=== PATIENT | female | born 1980 | race Caucasian/White ===

== ENCOUNTER 2018-03-18 18:56 | Inpatient (IN) ==
[2018-03-18] MEDS ORDERED: *HR* HYDROcodone/Acet 5/325 mg TABLET PO ONE (19:50)
[2018-03-18] MEDS ORDERED: Lidocaine 1% 20 ML MDV INFILT ONE (19:59)
--- NOTE | 2018-03-18 19:59 | Emergency Department Note ---
Disposition Clinical Impression: Accelerated hypertension Headache Qualifiers: Headache type: unspecified Headache chronicity pattern: acute headache Intractability: intractable Qualified Code(s): R51 - Headache Disposition: Admitted As Inpatient Condition: Good Time of Disposition: 00:10 Neck Injury/Pain HPI - General Chief Complaint: ED Neck Pain/Injury Stated Complaint: neck pain-being tx for herniated discs Time Seen by Provider: 03/18/18 19:37 Source: patient, family () Mode of arrival: ambulatory Limitations: no limitations Nursing Notes Reviewed: Yes Vital Signs Reviewed: Yes - History of Present Illness HPI Narrative: 37-year-old female history of C5 herniated disc presents emergency department with neck pain and headache. States an hour prior to arrival while leaving the restaurant she began experiencing sharp neck pain just below the back of her head. No radiation of the pain initially. She denies any numbness or tingling. Denies any weakness of her extremities. She denies any injury or trauma to the head or the neck. She was recently diagnosed with a herniated discs 3 months ago on imaging, she follows with Dr. Santo davis in [place], [place] with [facility]. Currently the pain is sharp and radiates up along the back of her head to the top of her head. She denies any nausea or vomiting. Denies any visual changes. States she said some similar neck pain but not this severe , she normally takes [place] which helps control the pain. She reports being evaluated by multiple physicians and multiple pain modalities including different medications, nerve blocks and also an ablation. Pt Subjective Complaint: neck pain - Related Data Home Medications Medication Instructions Recorded Confirmed Amitriptyline [Elavil] 50 mg PO HS 04/18/15 04/18/15 Amlodipine [Norvasc] 10 mg PO DAILY 04/18/15 04/18/15 Atorvastatin [Lipitor] 40 mg PO HS 04/18/15 04/18/15 Cetirizine HCl [Zyrtec] 10 mg PO DAILY 04/18/15 04/18/15 FLUoxetine HCl [PROzac] 20 mg PO BID 04/18/15 04/18/15 Fenofibrate [Lofibra] 160 mg PO HS 04/18/15 04/18/15 Gabapentin [Neurontin] 600 mg PO TID 04/18/15 04/18/15 Lisinopril [Zestril] 10 mg PO DAILY 04/18/15 04/18/15 Metformin HCl [Fortamet] 500 mg PO BID 04/18/15 04/18/15 Tizanidine [Zanaflex] 4 mg PO QID PRN 04/18/15 04/18/15 Previous Rx's Medication Instructions Recorded HYDROcodone/Acet 5/325 mg [[place] 1 tab PO Q4H PRN #15 tab 10/13/16 5-325 mg] Ondansetron HCl [Zofran] 4 mg PO Q8HR PRN #10 tablet 03/22/17 OxyCODONE/APAP 5/325 [Percocet 1 each PO Q6HR PRN #14 tablet 03/22/17 5/325 MG] predniSONE [Prednisone] 50 mg PO DAILY #5 tablet 06/18/17 Allergies Allergy/AdvReac Type Severity Reaction Status Date / Time aspirin [ASA] AdvReac See Verified 03/18/18 19:08 Comments Tape Allergy Hives Uncoded 03/18/18 19:08 All systems ED: reviewed and negative except as stated. Review of Systems: As Per HPI Constitutional: Denies: fever ENT ED: Denies: congestion Cardiovascular: Denies: chest pain Respiratory: Denies: dyspnea Gastrointestinal: Denies: nausea, vomiting Musculoskeletal: Reports: neck pain. Denies: back pain Integumentary: Denies: rash, abrasion Neurological: Reports: headache. Denies: weakness, numbness, paresthesias, abnormal gait Past Medical History - Past Medical History Attestation: Yes The following information was validated with the patient. Source: patient Medical history: Reports: diabetes, fibromyalgia, hyperlipidemia, hypertension Surgical history: Reports: non-contributory Psychiatric history: Reports: no psych history - Social History Smoking Status: Never smoker Smokeless Tobacco Status: No Alcohol use: Reports: none Drug use: Reports: none Physical Exam - General Limitations: no limitations General appearance: alert, in no apparent distress - Head Head exam: atraumatic, normocephalic, normal inspection - Eye Eye exam: Present: normal appearance, PERRL, EOMI, mydriasis. Absent: nystagmus - ENT ENT exam: normal exam, normal oropharynx, mucous membranes moist, TM's normal bilaterally - Neck Neck exam: Present: normal inspection, full ROM, trachea midline, tenderness ( Upper cervical midline tenderness and paraspinal around C2 C3) - Chest Chest inspection: Present: normal inspection, symmetric chest wall rise. Absent : tenderness - Respiratory Respiratory exam: Present: normal lung sounds bilaterally - Cardiovascular Cardiovascular exam: Present: regular rate, normal rhythm, normal heart sounds. Absent: systolic murmur, diastolic murmur - Expanded Cardiovascular Exam Peripheral pulses: 2+: radial (R), radial (L) - Abdominal Exam Abdominal exam: Present: soft, Non-Tender. Absent: tenderness, distention, guarding, rebound, rigidity - Extremities Exam Extremities exam: Present: normal inspection, full ROM, normal capillary refill. Absent: tenderness, pedal edema - Back Exam Back exam: Present: normal inspection, full ROM. Absent: tenderness, vertebral tenderness - Neurological Exam Neurological exam: Present: alert, oriented X3, CN II-XII intact - Expanded Neurological Exam Patient oriented to: Present: person, place, time Speech: Present: fluid speech Cranial nerves: EOM function (II, III, IV, ): Normal, facial sensation (V): Normal, facial palsy (VII): Normal, gag reflex (IX): Normal, spinal accessory function (XI): Normal, tongue deviation (XII): Normal Cerebellar function: finger to nose: Normal, heel to hdez: Normal Cerebellar function: normal gait Motor strength - LUE: 5/5 Motor strength - RUE: 5/5 Motor strength - LLE: 5/5 Motor strength - RLE: 5/5 Upper motor neuron exam: roxanne neglect: Absent bilaterally, pronator drift: Absent bilaterally Sensory exam upper extremity: light touch: Normal Sensory exam lower extremity: light touch: Normal Coma Scale Eye Opening: Spontaneous Coma Scale Motor Response: Obeys Commands Coma Scale Verbal Response: Oriented Coma Scale Total: 15 - Psychiatric Psychiatric exam: Present: normal affect, normal mood - Skin Skin exam: Present: warm, dry, intact, normal color. Absent: rash, cyanosis, diaphoresis Course Course Narrative: Patient presents with sudden neck pain and headache within one hour prior to arrival. No neurologic deficits on examination. No visual changes nausea or vomiting. At this time will give her [place] to help control the pain also get emergent CT of the head and cervical spine to rule out any subarachnoid hemorrhage. - Reevaluation(s) Reevaluation #1: CT of the head and cervical spine to not reveal any intracranial abnormality or bleed. As the patient presented within less than 6 hours less likely to be subarachnoid hemorrhage. Unfortunately at this time we have given her multiple analgesic medications without any significant relief. We have noticed that her blood pressure continues to be significantly elevated. She reports sometimes her pain causing her blood pressure to rise but never higher than 130 systolic. Suspect that likely her pain could be attributed to her hypertension will treat with labetalol and check some labs including chest x-ray EKG and a urinalysis. Patients in agreement with this plan. Reevaluation #2: After multiple doses of analgesics and antihypertensive medications her pain continues to be persistent. Her blood pressure has improved as good as systolic 180 however continues to return. At this time we have elected to place her on the labetalol drip to continue to control her blood pressure. She does not reveal any signs for an organ damage as she has a normal creatinine. She does have some proteinuria. EKG did not reveal any ischemic findings. She does have findings consistent with possible left ventricular hypertrophy. She will be admitted for further evaluation and management for her blood pressure and pain. Reevaluation #3: Patient continues to be difficult with IV access. Unfortunately we have lost IV access in her right upper extremity. After multiple attempts with ultrasound she continues to not have IV access. I have attempted to look at the external jugular with ultrasound but unable to appreciate. Given her limited access we have obtained written consent for central venous catheter placement. Successful in replacing a right internal jugular central venous catheter without complications. Chest x-ray does not reveal both thorax. The catheter appears proper position. Given her significant pain we will also obtain a CT angiogram of the head neck. The results will be followed up by hospitalist. Impression is intractable headache and neck pain and accelerated hypertension without end organ damage. - Consultations Consultation #1: Spoke with on-call hospitalist nixon Allred to admit for accelerated hypertension and neck pain and headache. No further orders at this time Current BP 186/134 which has significantly improved from SBP 210. She denies any chest pain and shortness of breath. Vital Signs Temperature 98.2 F 03/18/18 19:08 Pulse Rate 110 03/18/18 19:08 Respiratory Rate 20 03/18/18 19:08 Blood Pressure 210/131 03/18/18 19:08 O2 Sat by Pulse Oximetry 98 03/18/18 19:08 Temperature 98.2 F 03/18/18 20:40 Pulse Rate 94 03/19/18 01:53 Respiratory Rate 16 03/19/18 01:53 Blood Pressure 202/132 03/19/18 01:53 O2 Sat by Pulse Oximetry 96 03/19/18 01:53 Oxygen Delivery Oxygen Delivery Room Air Procedures - Central Line Placement Right IJ Central Line Inserted*: Yes Central Line Catheter Replacement*: No Central Line Insertion: emergent Consent Obtained: written consent Procedural Pause: verify patient name and date of , timeout performed per policy, ashish and assess the site, assemble equipment and verify supplies, perform hand hygiene During the Procedure: clinician is wearing sterile gloves, cap, mask,& gown during insertion, sterile field and sterile technique are maintained, patient's face is covered with drape or mask and wearing a cap, everyone in room is wearing a mask Prep the Procedure Site: apply chloraprep to the skin using a back and forth scrubbing motion, apply chloraprep for 30 seconds (upper body), 1-2 min ( femoral sites), allow prep to dry, drape the patient with a full body drape Local Anesthetic: lidocaine 1% Amount of anesthesia used (mL): 3 Ultrasound Used for Placement: Yes Central Line Lumen Inserted: triple Post Procedure: sutured in place, good blood return, all ports aspirated, flushed, capped, sterile dressing applied, guide wire removed and visualized, dressing is dated Post Procedure X-Ray: tip of catheter in good position, no pneumothorax seen Patient Tolerated Procedure: well, no complications Complications: none Date: 03/19/18 Time: 01:40 Neck Pain - MDM Narrative Medical decision making narrative: Patient was discussed with my attending physician who agrees with ED management and final disposition. They independently evaluated the patient. Please refer to their attestation to this encounter for additional information. This note was generated by [employer] voice recognition software and as a result grammatical or spelling errors may occur using this program. - Differential Diagnosis Likely: disc disorder or cervical region. Unlikely: fracture of cervical spine without lesion of spinal cord, cervical radiculopathy - Medical Records Medical records reviewed: Yes I reviewed the patient's medical records. - Lab Data Lab results reviewed: Yes I reviewed the patient's lab results. Result diagrams: 03/18/18 21:43 03/18/18 21:43 Lab Results 03/18/18 03/18/18 03/18/18 Range/Units 21:43 21:43 22:03 WBC 11.9 H (4.3-11.1) K/mcL RBC 5.50 H (3.82-4.97) M/mcL Hgb 16.0 H (11.5-15.4) g/dL Hct 46.1 H (35.3-44.9) % MCV 83.8 (83.0-100.0) fL MCH 29.1 (28.0-33.3) pg MCHC 34.7 (31.6-35.5) g/dL RDW 11.9 (11.5-14.5) % Plt Count 375 (140-400) K/mcL MPV 9.5 (9.4-12.4) fL Immature Gran % 0.4 (0-4) % Seg Neutrophils % 79.6 % Lymphocytes % 15.0 % Monocytes % 4.4 % Eosinophils % 0.2 % Basophils % 0.4 % Neutrophils # 9.5 H (1.6-8.9) K/mcL Lymphocytes # 1.8 (0.6-4.6) K/mcL Monocytes # 0.5 (0.0-1.3) K/mcL Eosinophils # 0.0 (0.0-0.6) K/mcL Basophils # 0.1 (0.0-0.2) K/mcL Sodium 142 (136-145) mEq/L Potassium 3.3 L (3.5-5.1) mEq/L Chloride 105 (98-107) mEq/L Carbon Dioxide 24 (23-29) mEq/L BUN 11 (6-20) mg/dL Creatinine 0.67 (0.60-1.20) mg/dL Est GFR ( Amer) > 60 (> 60) Est GFR (Non-Af Amer) > 60 (> 60) BUN/Creatinine Ratio 16 (6-26) Glucose 178 H (70-105) mg/dL Calculated Osmolality 298 (280-300) Calcium 10.0 (8.6-10.3) mg/dL Urine Color Yellow (Yellow) Urine Clarity Clear (Clear) Urine pH 6.0 (5.0-8.0) pH Units Ur Specific [place] 1.019 (1.010-1.025) Urine Protein 100 H (Neg-Trace) mg/dL Urine Glucose (UA) 100 H (Normal) mg/dL Urine Ketones Negative (Negative) mg/dL Urine Blood Negative (Negative) Urine Nitrite Negative (Negative) Urine Bilirubin Negative (Negative) Urine Urobilinogen Normal (Normal) mg/dL Ur Leukocyte Esterase Small H (Negative) Urine Microscopic RBC 0-3 (0-3) per hpf Urine Microscopic WBC 5-15 H (0-3) per hpf Ur Squamous Epith Cells Many H (None-Few) per lpf Calcium Oxalate Crystal Present Urine Bacteria None Seen (None-Few) per hpf Hyaline Casts Many H (None-Few) per lpf Urine Mucus Many H (Few) Ur Culture Indicated? NO. A (NO) - Radiology Data Radiology results reviewed: Yes I reviewed the patient's radiology results. Cervical Spine CT 03/18/18 19:57 IMPRESSION: No acute abnormality of the cervical spine. If there is concern for significant degenerative disc disease, further evaluation with nonemergent cervical spine MRI should be considered, as the degree of streak artifact limits evaluation of the discs on the current examination. D/ / Humphrey London MD / Humphrey London MD Interpreting Provider: Humphrey London MD Head CT 03/18/18 19:57 IMPRESSION: No acute intracranial abnormality. D/ / Ahmet Mcdonald MD / Ahmet Mcdonald MD Interpreting Provider: Ahmet Mcdonald MD - EKG Data EKG attestation: Yes I reviewed and interpreted this EKG. EKG results narrative: EKG performed 214 normal sinus rhythm 79 beats per minute, good R wave progression, no ST elevation, signs for LVH seen in aVL greater than 12 mm, intervals within normal limits. No old EKG available for comparison at this time. No acute ischemic changes. Critical Care Time Critical Care Time: Yes Total Critical Care Time: 60 Attestation: The high probability of a clinically significant, sudden or life threatening deterioration of the [neuro/CV] system(s) required my full and direct attention , intervention and personal management. The aggregate critical care time was [60 ] minutes. This time is in addition to time spent performing reported procedures but includes the following: [x] Data Review and interpretation [x] Patient assessment and monitoring of vital signs [x] Documentation [x] Medication orders and management Attestation Statement - Attestation Attestation: I examined this patient and my medical decision-making was reviewed with the Resident Physician, Dr. Santana. I agree with the documented findings, disposition and treatment plan as described except to the extent set forth below. Patient is a 37-year-old white female with a history of chronic occipital headaches, occipital neuralgia and chronic neck pain who presents to the emergency department today with an exacerbation of her typical posterior head pain. Patient denies any history of falls or trauma, stating that she has been seen by numerous neurologists and most recently was transferred to a neurologist in [place] Dr. Blanchard, who has done occipital nerve blocks with some transient improvement in pain and she is scheduled for an upcoming occipital ablation. Patient had an exacerbation of her typical posterior head pain and neck pain but feels the severity is much worse than her typical episodes. Patient arrives with elevated blood pressure, denies any visual changes, no dizziness or vertigo, no focal neurologic deficits in speech is clear. Patient is having nausea and had one episode of emesis shortly after arrival to the ED bed. I agree with patient's physical exam findings as documented. Elevated blood pressure on arrival. Patient was placed on cardiac monitoring continuous pulse ox, IV saline well was established labs were drawn and sent and patient had noncontrast head CT as well as chest x-ray obtained. We attempted pain medicines and nausea medicines IV. Noncontrast head CT was unremarkable and with symptoms being less than 6 hours in duration I do not feel further lumbar puncture is required. Patient also received labetalol for her elevated blood pressure. Throughout the ED duration we had difficulty maintaining peripheral access. Peripheral access was lost 3 times and ultimately could not be reestablished. Patient continues to have significantly elevated blood pressures as well as no improvement in her pain since arrival. Numerous medications have been attempted IV with no improvement. Due to patient's severity of symptoms we do want to proceed with CTA head neck for further evaluation. Also would like to start labetalol IV. Patient consented for central line placement and understands risks and benefits of procedure. I personally supervised placement of right IJ central venous access. Please see procedure note for details. We will recheck patient's blood pressure and initiate labetalol drip. Patient will be sent for CTA of the head neck and be admitted to the hospitalist service. We have arty discussed the case with the hospitalist who is anticipating her arrival following central line placement. Patient will be admitted for hypertensive urgency, intractable headaches and occipital neuralgia.
[2018-03-18] MEDS ORDERED: Ondansetron 4 MG/2 ML VIAL IVP ONE ×2 (20:59→23:11)
[2018-03-18] MEDS ORDERED: *HR* HYDROmorphone (PF) 1 MG/ML SYRINGE IVP ONE (20:59)
[2018-03-18] MEDS ORDERED: *HR* FentaNYL (PF) 100 MCG/2 ML VIAL IVP ONE (21:23)
[2018-03-18] MEDS ORDERED: *HR* Labetalol 20 MG/4 ML SYRINGE IVP ONE ×2 (21:23→22:11)
[2018-03-18 22:00] LABS: Basophils # 0.1 K/mcL (0.0-0.2); Basophils % 0.4 %; Eosinophils % 0.2 %; Hematocrit 46.1 % (35.3-44.9); Immature Granulocytes % 0.4 % (0-4); Lymphocytes # 1.8 K/mcL (0.6-4.6); Mean Corpuscular HGB Conc 34.7 g/dL (31.6-35.5); Mean Corpuscular Hemoglobin 29.1 pg (28.0-33.3); Mean Corpuscular Volume 83.8 fL (83.0-100.0); Mean Platelet Volume 9.5 fL (9.4-12.4); Monocytes # 0.5 K/mcL (0.0-1.3); Monocytes % 4.4 %; Neutrophils # 9.5 K/mcL (1.6-8.9); Platelet Count 375 K/mcL (140-400); Red Cell Distribution Width 11.9 % (11.5-14.5); Segmented Neutrophils % 79.6 %
[2018-03-18 22:14] LABS: BUN/Creatinine Ratio 16 (6-26); Blood Urea Nitrogen 11 mg/dL (6-20); Carbon Dioxide 24 mEq/L (23-29); Chloride 105 mEq/L (98-107); Glucose 178 mg/dL (70-105); Osmolality,Calculated 298 (280-300); Potassium 3.3 mEq/L (3.5-5.1); Sodium 142 mEq/L (136-145); eGFR For Non-African Americans > 60 (> 60)
[2018-03-18 22:21] LABS: Bilirubin,Urine Negative (Negative); Blood,Urine Negative (Negative); Clarity,Urine Clear (Clear); Color,Urine Yellow (Yellow); Glucose,Urine (UA) 100 mg/dL (Normal); Ketones,Urine Negative (Negative); Leukocyte Esterase,Urine Small (Negative); Nitrite,Urine Negative (Negative); Protein,Urine 100 mg/dL (Neg-Trace); Specific Gravity,Urine 1.019 (1.010-1.025); Urobilinogen,Urine Normal (Normal)
[2018-03-18 22:23] LABS: Bacteria,Urine None Seen per hpf (None-Few); RBC,Urine 0-3 per hpf (0-3); Squamous Epithelial Cell,Urine Many per lpf (None-Few)
[2018-03-18 22:35] LABS: Calcium Oxalate Crystals,Urine Present; Hyaline Casts,Urine Many per lpf (None-Few); Mucus,Urine Many (Few)
[2018-03-18] MEDS ORDERED: Metoclopramide 10 MG/2 ML VIAL IVP ONE (22:59)
[2018-03-18] MEDS ORDERED: Labetalol 200 MG in D5% in Water 250 ML IVC SCH (23:00)
[2018-03-18] MEDS ORDERED: Isovue-370 500 ML INFUS..BTL IV ONE (23:01)
[2018-03-19] MEDS ORDERED: Naloxone 0.4 MG/ML INJ IVP PRN (00:54)
[2018-03-19] MEDS ORDERED: *HR* FentaNYL (PF) 100 MCG/2 ML VIAL ONE (01:50)
[2018-03-19] MEDS: *HR* FentaNYL (PF) 100 MCG/2 ML VIAL IVP ONE ×2 (01:52→03:13)
[2018-03-19] MEDS ORDERED: Ketorolac 30 MG/ML VIAL IVP ONE (02:33)
[2018-03-19] MEDS ORDERED: traMADol 50 MG TABLET PO PRN (02:34)
[2018-03-19] MEDS ORDERED: *HR* HYDROcodone/Acet 5/325 mg TABLET PO PRN (02:35)
--- NOTE | 2018-03-19 02:36 | Internal Med History&Physical ---
Date of Encounter: 03/19/18 Time of Encounter: 02:30 Internal Medicine - H&P: HPI Chief complaint: Severe Headache since 6pm today History of present illness: Ms. Matthews is a 37 year old female with pmh of hypertension, fibromyalgia, diabetes, hyperlipidemia presenting with complaints of severe headache that started around 6pm last night. Patient stats she was leaving a restaurant and began to have sharp neck pains at the back of her head which progressed to a severe headache in the back of her head. She has had similar headaches before but nothing this severe. Pain is sharp, 10/10 constant and hasn't really been relieved by anything in the ER. She has a recent diagnosis of herniated discs 3 months ago and is on norco for pain. She denies any fevers, admits to nausea and vomiting. In the ER, a CT head was done which was negative for any intracranial pathology, but BP was nted to be severely elevated at 209/125. A central line was placed in the ED due to difficult access and she was started on a labetalol drip. When she got to the floor, HR went to the 180s and rhythm appears to be SVT. She got 3 doses of adenosine, 6mg, 6mg and 12mg with no return to sinus rhythm and she has been started on a cardizem drip Past Med Surg Social [facility] HX - Past Medical History Medical history: diabetes, fibromyalgia, hyperlipidemia, hypertension Additional medical history: Neck pain Psychiatric history: no psych history - Past Surgical History Surgical History: non-contributory Additional surgical history: gastric bypass - Social History Smoking Status: Never smoker Smokeless Tobacco Status: No Alcohol use: none Drug use: none Internal Medicine - H&P: Meds ARIPiprazole [Abilify] 5 mg PO DAILY 03/19/18 [History] Cholecalciferol (Vitamin D3) [Vitamin D3] 10,000 unit PO DAILY 03/19/18 [History ] Duloxetine HCl [Cymbalta] 60 mg PO DAILY 03/19/18 [History] Gabapentin [Neurontin] 300 mg PO HS 03/19/18 [History] HYDROcodone/Acet 5/325 mg [[place] 5-325 mg] 1 tab PO Q8H PRN 03/19/18 [History] Multivitamin [One Daily Multivitamin] 1 tab PO DAILY 03/19/18 [History] Tizanidine HCl [Tizanidine HCl] 4 mg PO TID PRN 03/19/18 [History] 3 Allergy/AdvReac Type Severity Reaction Status Date / Time aspirin [ASA] AdvReac See Verified 03/19/18 08:10 Comments NSAIDS (Non-Steroidal AdvReac See Verified 03/19/18 08:10 Anti-Inflamma Comments Tape Allergy Hives Uncoded 03/18/18 19:08 All Systems PM: A 10-system review of systems was performed and is negative for pertinent findings except as documented above in the HPI. - Constitutional Constitutional: no chills, no fever(s), no night sweats - EENT Eyes: no change in vision, no discharge, no pain, no photophobia Ears: no ear discharge, no ear pain, no tinnitus Nose, mouth and throat: no dysphagia, no nasal discharge, no neck pain, no sore throat - Cardiovascular Cardiovascular ROS IM: no chest pain, no diaphoresis, no dyspnea, no lightheadedness, no palpitations, no syncope - Respiratory Respiratory: no cough, no dyspnea, no wheezing, no excessive phlegm production - Gastrointestinal Gastrointestinal: no abdominal pain, no diarrhea, no hematemesis, no hematochezia, no melena, no nausea, no vomiting - Genitourinary Genitourinary: no change in urinary stream, no dysuria, no flank pain, no hematuria - Musculoskeletal Musculoskeletal ROS IM: no numbness, no tingling - Integumentary Integumentary IM: no rash, no unusual bruising - Neurological Neurological ROS: headache(s), no confusion, no convulsions, no focal weakness, no numbness, no tingling, no tremor(s) - Hematologic/Lymphatic Hematologic/Lymphatic: no easy bruising - Constitutional Vitals: Temp Pulse Resp BP Pulse Ox 98.2 F 94 16 209/125 96 03/18/18 20:40 03/19/18 01:53 03/19/18 01:53 03/19/18 01:56 03/19/18 01:53 - Head Head exam: Present: atraumatic, normocephalic - Eye Eye exam: Present: PERRL, conjuntiva pink, sclera anicteric Pupils: Present: PERRL - Neck Neck exam general surgery: Present: supple, trachea midline. Absent: lymphadenopathy - Respiratory Respiratory exam: Present: CTAB. Absent: accessory muscle use, rales, rhonchi, wheezes - Cardiovascular Cardiovascular exam: Present: RRR, +S1, +S2. Absent: diastolic murmur, gallop, rubs, systolic murmur - GI/Abdominal GI/Abdominal exam: Present: normal bowel sounds, soft, no peritoneal signs. Absent: distended, tenderness - Extremities Exam Extremities exam: Present: warm, radial pulses palpable and symmetrical. Absent : calf tenderness, cyanotic, pedal edema - Neurological Exam Neurological exam: Present: CN II-XII intact, oriented X3, no focal deficits. Absent: pronater drift, facial droop, speech deficit Additional comments: has severe headache - Skin Skin exam: Present: dry, intact Internal Med - H&P Results - Labs CBC & Chem 7: 03/19/18 03:40 03/19/18 03:40 - Impressions ITS Impressions Chest X-Ray 03/19/18 01:31 IMPRESSION: 1. New right internal jugular central line terminates in the mid right atrium. No associated pneumothorax. 2. No acute cardiopulmonary process. D/ / Frank Montes MD / Frank Montes MD Interpreting Provider: Frank Montes MD - Assessment and plan (1) Hypertensive emergency Current Visit: Yes Status: Acute Assessment and plan: Hypertensive emergency with acute hypertensive encephalopathy with headache, nausea and vomiting. Started on labetalol drip. Reduce BP gradually; no more than 25% in 24 hrs. BP was 209/125 on arrival. Received headache cocktail with reglan, benadryl and toradol. Will monitor BP (2) SVT (supraventricular tachycardia) Current Visit: Yes Status: Deleted Assessment and plan: Pt's heart rate on the floor has been sustained in the 180s. She is asymptomatic and hemdynamically stable. Rhythm on monitor shows SVT, but EKG showed possible afib with RVR. Patient got 3 doses of adenosine, 6mg, 6mg and 12mg and remained in tachyarrhythmia. She has been started on a cardizem drip. Monitor heart rate and consider cardiology consult in am. HR has persistently been in 150s despite beng axed out on cardizem drip. Will add amiodarone drip. (3) Atrial fibrillation with rapid ventricular response Current Visit: Yes Status: Acute Assessment and plan: Maxed out on cardizem drip. Added amiodarone drip to regimen this am (4) Headache Current Visit: Yes Status: Acute Assessment and plan: See #1. Likely 2/2 to hypertensive emergency. Pain control as needed. Patient also does not complain of fevers or a stiff neck. Pheochromocytoma may be a possibilty considering the elevated BP, HR and sustained headache. Obtain CT abdomen to r/o any masses Qualifiers: Headache type: unspecified Headache chronicity pattern: acute headache Intractability: intractable Qualified Code(s): R51 - Headache (5) Hypokalemia Current Visit: Yes Status: Acute Assessment and plan: Replaced (6) Diabetes Current Visit: Yes Status: Acute Assessment and plan: On insulin LDSS Qualifiers: Qualified Code(s): E11.9 - Type 2 diabetes mellitus without complications (7) DVT prophylaxis Current Visit: Yes Status: Acute Assessment and plan: Heparin sc (8) Leukocytosis Current Visit: Yes Status: Acute Assessment and plan: Possibly stress related. Patient has no fevers or chills. Will obtain blood cultures, cxr and urinalyis negative for infection. Continue to monitor and add antibiotics if blood cultures come back positive/ if patient become febrile Qualifiers: Leukocytosis type: unspecified Qualified Code(s): D72.829 - Elevated white blood cell count, unspecified - Time Spent With Patient Total time spent is greater than 50% in coordination of care (as documented) at patient's floor/unit and/or counseling patient:
[2018-03-19 02:45] LABS: Amphetamine Screen,Urine Negative ng/mL (Cutoff=1000); Barbiturate Screen,Urine Negative ng/mL (Cutoff=200); Benzodiazepines Screen,Urine Positive ng/mL (Cutoff=200); Cannabinoid Screen,Urine Negative ng/mL (Cutoff = 50); Cocaine Screen,Urine Negative ng/mL (Cutoff= 300); Opiate Screen,Urine Positive ng/mL (Cutoff=300); Phencyclidine Screen,Urine Negative ng/mL (Cutoff=25)
[2018-03-19] MEDS ORDERED: D5% in Water 1,000 ML IVC PRN (02:51)
[2018-03-19] MEDS ORDERED: Dextrose Gel 15 GM/37.5 ML TUBE PO PRN ×2 (02:51)
[2018-03-19] MEDS ORDERED: *HR* Dextrose 50 % in Water (Syg) 50 ML SYRINGE IVP PRN (02:51)
[2018-03-19] MEDS ORDERED: *HR* Adenosine 6 MG/2 ML VIAL IVP ONE ×5 (03:11→03:23)
[2018-03-19] MEDS ORDERED: Isovue-370 500 ML INFUS..BTL IV ONE (03:47)
[2018-03-19 04:17] LABS: Basophils # 0.1 K/mcL (0.0-0.2); Basophils % 0.5 %; Hematocrit 44.4 % (35.3-44.9); Hemoglobin 15.4 g/dL (11.5-15.4); Immature Granulocytes % 0.3 % (0-4); Lymphocytes # 1.4 K/mcL (0.6-4.6); Lymphocytes % 9.2 %; Mean Corpuscular HGB Conc 34.7 g/dL (31.6-35.5); Mean Corpuscular Hemoglobin 28.7 pg (28.0-33.3); Mean Corpuscular Volume 82.7 fL (83.0-100.0); Mean Platelet Volume 9.8 fL (9.4-12.4); Monocytes # 0.6 K/mcL (0.0-1.3); Monocytes % 4.2 %; Platelet Count 412 K/mcL (140-400); Red Blood Count 5.37 M/mcL (3.82-4.97); Red Cell Distribution Width 12.4 % (11.5-14.5); Segmented Neutrophils % 85.8 %
[2018-03-19 04:29] LABS: BUN/Creatinine Ratio 19 (6-26); Blood Urea Nitrogen 11 mg/dL (6-20); Calcium 9.5 mg/dL (8.6-10.3); Carbon Dioxide 20 mEq/L (23-29); Chloride 105 mEq/L (98-107); Glucose 214 mg/dL (70-105); Magnesium 1.6 mg/dL (1.6-2.6); Osmolality,Calculated 292 (280-300); Phosphorous 4.5 mg/dL (2.7-4.5); Potassium 3.7 mEq/L (3.5-5.1); Sodium 138 mEq/L (136-145); eGFR For Non-African Americans > 60 (> 60)
[2018-03-19] MEDS: *HR* Heparin 5,000 UNIT/ML VIAL SQ SCH ×2 (05:32→18:45)
[2018-03-19] MEDS: Ondansetron 4 MG/2 ML VIAL IVP PRN ×2 (06:14→12:04)
[2018-03-19] MEDS ORDERED: *HR* HYDROmorphone 2 MG/ML SYRINGE IVP PRN (06:34)
[2018-03-19] MEDS ORDERED: Amiodarone 150 MG in D5% in Water 100 ML IVPB ONE (06:40)
[2018-03-19 07:30] LABS: Estimated Average Glucose 117 mg/dl; Hemoglobin A1C 5.7 %
[2018-03-19] MEDS ORDERED: Amiodarone Premix 150 MG/100 ML BAG IVPB ONE ×2 (07:30)
[2018-03-19] MEDS ORDERED: Amiodarone Premix 360 MG/200 ML BAG IVC ONE (07:30)
[2018-03-19 07:44] LABS: Thyroid Stimulating Hormone 0.239 mcIU/mL (0.340-5.600)
[2018-03-19] MEDS: Insulin LISPRO 300 UNITS/3 ML VIAL SQ SCH ×3 (08:04→17:47)
[2018-03-19] MEDS: *HR* OxyCODONE Immed Rel 5 MG TABLET PO PRN ×4 (08:08→20:00)
--- NOTE | 2018-03-19 09:57 | Cardiology Consult Note ---
<Merced Fields - Last Filed: 03/19/18 11:42> Date of Encounter: 03/19/18 Time of Encounter: 09:54 Assessment and Plan (1) Atrial fibrillation with rapid ventricular response Current Visit: Yes Status: Acute Patient found to be in atrial fibrillation with RVR upon admission, possible SVT, was given adenosine without change, started on cardizem drip Upon review of telemetry patient, patient most likely not in SVT, most consistent with atrial fibrillation with RVR, has been rate controlled and in NSR since 705. Amiodarone was not started due to NSR, agree with continued hold. Patient continues to deny chest pain or palpitations with Mg 1.6, TSH slightly low at 0.239, K 3.7 Echo ordered, pending Was started on cardizem 15 ml/hr, titrated down to 10ml/hr ,continues to be rate controlled in normal sinus rhythm with rate of 82. Will stop cardizem and switch to Lopressor 50 BID PO. (2) Hypertensive emergency Current Visit: Yes Status: Acute Patient presented with hypertensive encephalopathy with BP 210/130's was started on labetolol drip in ER continued inpatient. BP currently stable 150/100s and continues to downtrend Echo pending Will stop labetolol drip, start Lopressor 50 mg BID PO Discussion w patient/family: The assessment and plan as outlined above was discussed with the patient and/or family members who expressed understanding and agreement. All questions were answered. Thank you for involving us in the care of your patient. Please call with any questions. History of Present Illness Consult date: 03/19/18 Requesting physician: Leyda Singh Consult reason: Atrial fibrillation with RVR, hypertensive encephalopathy Chief complaint: Neck pain History of present illness: Ms. Matthews is a 37 year old female presenting for cardiology consult for atrial fibrillation with RVR and hypertensive encephalopathy. Past medical history significant for herniated disc in C5/C6 and C6/C7 and depression. Patient presented to the ED on 03/18/18 with neck pain and headache that started with abrupt onset in the mid cervical spine and radiated up into the head that progressively got worse throughout the evening while driving home. Patient has been on pain management for neck pain and has been seen by Dr. Saravia, taking [place] 5-325 mg for management. She states that she chronically has neck pain and headache, however, this episode is more severe than usual episodes. She states that she had associated nausea with one episode of vomiting. She denies LOC, dizziness, loss or change in vision, numbness, tingling, weakness, or confusion. She denies new medications or drug use. In the ER patient was given migraine cocktail with CT of the head which was negative for acute intracranial process and CTA neck which was negative for acute process. She was found to be hypertensive at 210/131 and was started on labetolol drip. Upon admission, patient blood pressure remained elevated and was continued on labetolol drip also found to be in SVT and was given adenosine 6 mg/ 6mg/ 12 mg, found to be in atrial fibrillation with RVR, was started on 15 ml/hr Cardizem without conversion. This morning, patient was to be started on Amiodarone, however, this am, patient had converted to NSR with rate around 95, cardizem was titrated down to 10/ hr and continues to remain in NSR. Did not start the amiodarone. Patient denies having any symptoms of chest pain, palpitations during these episodes. This morning, patient continues to have headache and neck pain, although slightly decreased from initial presentation. Denies feeling palpitations, chest pain, LH or dizziness. Blood pressure this morning was 155/100. She states that she has not have atrial fibrillation in the, has not been in SVT, and does not take any blood pressure medications at home. Past Med Surg Social Fam HX - Past Medical History Medical history: diabetes, fibromyalgia, hyperlipidemia, hypertension Additional medical history: Neck pain Psychiatric history: no psych history - Past Surgical History Surgical History: non-contributory Additional surgical history: gastric bypass - Social History Smoking Status: Never smoker Smokeless Tobacco Status: No Alcohol use: none Drug use: none Medications and Allergies ARIPiprazole [Abilify] 5 mg PO DAILY 03/19/18 [History] Cholecalciferol (Vitamin D3) [Vitamin D3] 10,000 unit PO DAILY 03/19/18 [History ] Duloxetine HCl [Cymbalta] 60 mg PO DAILY 03/19/18 [History] Gabapentin [Neurontin] 300 mg PO HS 03/19/18 [History] HYDROcodone/Acet 5/325 mg [[place] 5-325 mg] 1 tab PO Q8H PRN 03/19/18 [History] Multivitamin [One Daily Multivitamin] 1 tab PO DAILY 03/19/18 [History] Tizanidine HCl [Tizanidine HCl] 4 mg PO TID PRN 03/19/18 [History] 3 Allergy/AdvReac Type Severity Reaction Status Date / Time aspirin [ASA] AdvReac See Verified 03/19/18 08:10 Comments NSAIDS (Non-Steroidal AdvReac See Verified 03/19/18 08:10 Anti-Inflamma Comments Tape Allergy Hives Uncoded 03/18/18 19:08 All Systems Review: The remainder of the systems were reviewed and are negative - Constitutional Constitutional: headache(s), no chills, no fatigue, no fever(s), no frequent falls, no weakness, no weight gain, no weight loss - Cardiovascular Cardiovascular: rapid heart rate, no chest pain at rest, no chest pain with exertion, no diaphoresis, no dyspnea at rest, no dyspnea on exertion, no irregular heart rhythm, no radiating jaw, neck or arm pain, no leg edema, no lightheadedness, no orthopnea, no palpitations, no paroxysmal nocturnal dyspnea , no slow heart rate, no syncope - Respiratory Respiratory: no cough, no dyspnea, no hemoptysis, no wheezing - Gastrointestinal Gastrointestinal: nausea, no abdominal pain, no constipation, no diarrhea - Genitourinary Genitourinary: no hematuria - Musculoskeletal Musculoskeletal: back pain, myalgias, no arthralgias, no muscle weakness - Integumentary Integumentary: no rash, no unusual bruising - Neurological Neurological: no abnormal speech, no dizziness, no focal weakness, no loss of vision, no memory loss, no numbness, no syncope, no tingling - Hematological/Lymphatic Hematologic/Lymphatic: no easy bleeding, no easy bruising Physical Examination Vital Signs, Last 4 Hours Temp Pulse Resp BP Pulse Ox 03/19/18 08:19 93 03/19/18 08:16 93 16 152/108 96 03/19/18 07:34 99.5 F 98 18 157/120 95 General: Conversant, No Apparent Distress HEENT: Atraumatic, Normocephaly, Mucus Membranes Moist Neck: No JVD, Normal carotid pulses Cardiac: Reg Rate and Rhythm, Normal S1 and S2 Lungs: Normal Breath Sounds, No Wheeze, Rales, Rhonchi Neuro: Alert and responsive, No focal deficits noted Abdomen: Soft, Non-Tender Skin: No rashes noted on visualized skin Musculoskeletal: No Chest Wall Tenderness Extremities: No Cyanosis, No Edema, Normal Pulses Results 03/19/18 03:40 03/19/18 03:40 Lab Results 03/19/18 03/19/18 03:40 03:40 WBC 15.1 H Hgb 15.4 Hct 44.4 Plt Count 412 H Sodium 138 Potassium 3.7 Chloride 105 Carbon Dioxide 20 L BUN 11 Creatinine 0.57 L Glucose 214 H Calcium 9.5 Magnesium 1.6 TSH 0.239 L - Imaging and Cardiology Chest Xray: report reviewed Echo: pending - EKG Interpretation EKG results cardiology: personally reviewed (EKG 03/19/18 at 835 shows normal sinus rhythm with ventricular rate of 96 bpm, non specific T wave changes, no evidence of acute ischemic changes.) Consult Discharge Plan - Plan Referrals: Ashli Dyer MD [Primary Care Provider] - 03/26/18 2:30 pm (Please fax discharge summary to [phone]) <Gerard Bauer - Last Filed: 03/19/18 12:39> Date of Encounter: 03/19/18 - Attending Attestation I examined this patient and my medical decision-making was reviewed with the Resident Physician. I agree with the documented findings, disposition and treatment plan as described except to the extent set forth below. Presents with HTN urgency, tachycardia. Now in NSR. Would recommend echo and treatment with BBlocker. Assessment and Plan Discussion w patient/family: The assessment and plan as outlined above was discussed with the patient and/or family members who expressed understanding and agreement. All questions were answered. Thank you for involving us in the care of your patient. Please call with any questions. History of Present Illness History of present illness: Ms. Matthews is a 37 year old female All Systems Review: The remainder of the systems were reviewed and are negative Physical Examination Vital Signs, Last 4 Hours Temp Pulse Resp BP Pulse Ox 03/19/18 11:47 99.0 F 100 18 150/116 97 Results 03/19/18 03:40 03/19/18 03:40 Lab Results 03/19/18 03/19/18 03:40 03:40 WBC 15.1 H Hgb 15.4 Hct 44.4 Plt Count 412 H Sodium 138 Potassium 3.7 Chloride 105 Carbon Dioxide 20 L BUN 11 Creatinine 0.57 L Glucose 214 H Calcium 9.5 Magnesium 1.6 TSH 0.239 L
--- NOTE | 2018-03-19 11:31 | Internal Med Progress Note ---
Hospitalist Progress Note - Encounter Date of Encounter: 03/19/18 Time of Encounter: 11:29 - Subjective Interval History: Still complaining of neck and back of her head pain 9 x 10 rating. Her pain is started at the neck and radiate to back and up high above the head. Denies any tingling numbness motor weakness, loss of consciousness, seizure, vision change , urinary bowel incontinence, fever or chills vomiting chest pain shortness of breath. Patient has slight nausea. At present labetalol and Cardene drip is running. Amiodarone was ordered but not given. Heart monitor slight tachycardia but appears sinus rhythm. Blood pressure better controlled. Reviewed the lab with slight worsening of white count, UA with no acute finding , chest x-ray with no acute finding. CT angiogram head and neck with no acute finding. - Exam Vitals: Temp Pulse Resp BP Pulse Ox 99.5 F 93 16 152/108 96 03/19/18 07:34 03/19/18 08:19 03/19/18 08:16 03/19/18 08:16 03/19/18 08:16 Exam: General appearance: Moderate distress due to pain, A&O X 3 Head exam: Atraumatic Eye exam: EOMI, PERRLA ENT exam: Moist oral mucosa Neck nontender, supple Respiratory exam: Clear to auscultation bilaterally Cardiovascular exam: Regular rate and rhythm, no systolic murmur Abdominal exam: Soft, nontender, nondistended, positive bowel sounds Extremities exam: No calf tenderness, no pedal edema Present: Skin-no rash, warm, dry, intact Neurological exam: CN II-XII intact, no focal deficits. No facial droop. Normal speech. Motor 5 x 5 in all 4 extremities - Assessment and Plan (1) Hypertensive emergency Current Visit: Yes Status: Acute Assessment and Plan: Hypertensive emergency with acute hypertensive encephalopathy with headache, nausea and vomiting, proteinuria, pending troponin. Started on labetalol drip and is still not controlled and eventually started Cardizem drip by admitting physician. Now blood pressure better controlled and reviewed by supervisor engine assembly who is planning to stop Cardizem and labetalol drip and a started Lopressor 50 mg twice a day. (2) Headache Current Visit: Yes Status: Acute Assessment and Plan: With no focal neurological deficit. Sudden onset of neck and back of the head pain. History of migraine and also herniated disc and cervical spine and she supposed to have an ablation procedure next week. No fever but has leukocytosis , Kernig sign negative. CT angiogram brain and neck with no acute finding. MRI head and neck ordered. I also consulted a spine surgeon to rule out any acute soft tissue complication due to herniated disc. Will also consult neurologist for further management. Continue symptomatic management. CT abdomen was ordered by admitting physician to rule out any possibility of pheochromocytoma or any mass, considering elevated blood pressure heart rate and sustained headache. (3) Atrial fibrillation with rapid ventricular response Current Visit: Yes Status: Acute Assessment and Plan: Patient was found to be in A. fib with RVR upon admission with possible SVT. Adenosine was given without any effect therefore Cardizem will drip was restarted. Amiodarone was ordered but never given. Now her rate control in normal sinus rhythm. Echocardiogram pending. Client Services Administrator's on board and planning to stop Cardizem and switch to Lopressor 50 twice a day. (4) Hypokalemia Current Visit: Yes Status: Acute Assessment and Plan: Replaced. Monitor (5) Diabetes Current Visit: Yes Status: Acute Assessment and Plan: A1c 5.7. Prediabetic. Continue Accu-Chek and sliding scale coverage. Metabolic syndrome. (6) Leukocytosis Current Visit: Yes Status: Acute Assessment and Plan: Trending up Possibly stress related. Urine analysis with no acute finding, chest x-ray with no acute finding. Blood culture ordered. Continue to monitor. Patient has no fevers or chills. Will obtain blood cultures, cxr and urinalyis negative for infection. Continue to monitor and add antibiotics if blood cultures come back positive or any concern for infection etiology (7) Obesity (BMI 30.0-34.9) Current Visit: Yes Status: Acute Assessment and Plan: Metabolic syndrome. Is status post gastric bypass surgery in the past. Continue lifestyle modification (8) Herniated disc, cervical Current Visit: Yes Status: Acute Assessment and Plan: Could be contributing present symptoms. Therefore a spine surgeon consulted and MRI cervical spine also ordered. (9) DVT prophylaxis Current Visit: Yes Status: Acute Assessment and Plan: Heparin sc - Time Spent with Patient Total time spent is greater than 50% in coordination of care (as documented) at patient's floor/unit and/or counseling patient: Greater than 35 minutes (Spent more than 35 minutes in patient care including communication with nursing staff and different consultants) Internal Medicine: Result - Labs CBC & Chem 7: 03/19/18 03:40 03/19/18 03:40 Labs: Short CBC 03/19/18 Range/Units 03:40 WBC 15.1 H (4.3-11.1) K/mcL Hgb 15.4 (11.5-15.4) g/dL Hct 44.4 (35.3-44.9) % Plt Count 412 H (140-400) K/mcL Neutrophils # 13.0 H (1.6-8.9) K/mcL BMP 03/19/18 03:40 Sodium 138 Potassium 3.7 Chloride 105 Carbon Dioxide 20 L BUN 11 Creatinine 0.57 L Glucose 214 H Calcium 9.5 - Impressions Impressions Chest X-Ray 03/19/18 01:31 IMPRESSION: 1. New right internal jugular central line terminates in the mid right atrium. No associated pneumothorax. 2. No acute cardiopulmonary process. D/ / Frank Montes MD / Frank Montes MD Interpreting Provider: Frank Montes MD Head CTA 03/19/18 23:01 IMPRESSION: Unremarkable CTA of the head and neck. D/ / Luis Spaulding MD / Luis Spaulding MD Interpreting Provider: Luis Spaulding MD Neck CTA 03/19/18 23:01 IMPRESSION: Unremarkable CTA of the head and neck. D/ / Luis Spaulding MD / Luis Spaulding MD Interpreting Provider: Luis Spaulding MD Consult Discharge Plan - Plan Referrals: Ashli Dyer MD [Primary Care Provider] - 03/26/18 2:30 pm (Please fax discharge summary to [phone]) (2) Headache Qualifiers: Headache type: unspecified Headache chronicity pattern: acute headache Intractability: intractable Qualified Code(s): R51 - Headache (6) Leukocytosis Qualifiers: Leukocytosis type: unspecified Qualified Code(s): D72.829 - Elevated white blood cell count, unspecified
--- NOTE | 2018-03-19 12:48 | Electrocardiograph Report ---
[place] [address] Test Date: 2018-03-18 Pat Name: Marisol Matthews Department: 103 Room: 09 Gender: F Clinical Nursing Coordinator: ZAY : 1980 Requested By: Artur Santana Order Number: [id number] Reading MD: Freddie Ricketts Measurements Intervals [place] Rate: 79 P: 63 [place]: 137 QRS: 3 QRSD: 96 T: 8 QT: 370 QTc: 404 Interpretive Statements SINUS RHYTHM MODERATE VOLTAGE CRITERIA FOR LVH, CONSIDER NORMAL VARIANT Electronically Signed On 03-19-2018 12:46:46 EDT by Freddie Ricketts
--- NOTE | 2018-03-19 12:50 | Electrocardiograph Report ---
[address] [place] [address] Test Date: 2018-03-19 Pat Name: Marisol Matthews Department: 110 Room: 09 Gender: F Court Usher: : 1980 Requested By: Foreign Camacho Order Number: [id number] Reading MD: Freddie Ricketts Measurements Intervals [place] Rate: 172 P: [place]: 0 QRS: 37 QRSD: 73 T: 9 QT: 266 QTc: 359 Interpretive Statements ATRIAL FIBRILLATION WITH RAPID VENTRICULAR RESPONSE Electronically Signed On 03-19-2018 12:48:18 EDT by Freddie Ricketts
--- NOTE | 2018-03-19 12:51 | Electrocardiograph Report ---
[place] [id number] Test Date: 2018-03-19 Pat Name: Marisol Matthews Department: 110 Room: 09 Gender: F Universal Grinder Tool: LEIGH ANN : 1980 Requested By: Leyda Singh Order Number: [id number] Reading MD: Freddie Ricketts Measurements Intervals [place] Rate: 96 P: 26 CA: 134 QRS: 10 QRSD: 87 T: 3 QT: 352 QTc: 406 Interpretive Statements SINUS RHYTHM MINIMAL VOLTAGE CRITERIA FOR LVH, CONSIDER NORMAL VARIANT Electronically Signed On 03-19-2018 12:49:02 EDT by Freddie Ricketts
[2018-03-19] MEDS ORDERED: Amiodarone Premix 360 MG/200 ML BAG IVC SCH (14:00)
--- NOTE | 2018-03-19 15:41 | Spinal Consult Note ---
Date of Encounter: 03/19/18 Time of Encounter: 15:38 Assessment and Plan (1) Cervical stenosis of spinal canal Current Visit: Yes Status: Chronic On exam she is alert and oriented in no acute distress. Afebrile vital signs stable. Head is normocephalic atraumatic. Extraocular muscles are intact. Neck is supple. There is no JVD. Orthopedic evaluation is notable for normal strength 5 out of 5 in all motor groups in the upper or lower extremities. She has a negative Nakia sign. She has a negative inverted radial reflex. There is no clonus. Her hips move symmetrically. MRI of the cervical spine reveals mild multilevel degenerative changes. There are disc bulges at C4-5 and C5-6 resulting in mild stenosis. Impression: 1) cervical stenosis 2) headache Plan: She has a normal neurologic examination and she does not have profound was stenosis on MRI examination. She also lacks any radicular symptoms or focal motor deficits. I find it reasonable and agree with the hospitalist plan to obtain a neurology consult with regard to the headaches. The patient does not require any surgical intervention related to the spine nor do I think the spine is the source of the majority of her symptomatology. History of Present Illness Chief complaint: "Neck pain going up into my head" HPI: Ms. Matthews is a 37 year old female Who has a long-standing history of intermittent neck pain but now has a new severe episode after performing a menial task. She states that the pain is in the posterior aspect of the neck and radiates into the posterior occiput and head. She denies radicular symptoms in the upper extremities. She denies weakness in the upper or lower extremities. She denies visual changes, photophobia, fevers or chills. She denies any bowel bladder symptomatology. Past Med Surg Social Fam HX - Past Medical History Medical history: diabetes, fibromyalgia, hyperlipidemia, hypertension Additional medical history: Neck pain Psychiatric history: no psych history - Past Surgical History Surgical History: non-contributory Additional surgical history: gastric bypass - Social History Smoking Status: Never smoker Smokeless Tobacco Status: No Alcohol use: none Drug use: none Medications and Allergies ARIPiprazole [Abilify] 5 mg PO DAILY 03/19/18 [History] Cholecalciferol (Vitamin D3) [Vitamin D3] 10,000 unit PO DAILY 03/19/18 [History ] Duloxetine HCl [Cymbalta] 60 mg PO DAILY 03/19/18 [History] Gabapentin [Neurontin] 300 mg PO HS 03/19/18 [History] HYDROcodone/Acet 5/325 mg [[place] 5-325 mg] 1 tab PO Q8H PRN 03/19/18 [History] Multivitamin [One Daily Multivitamin] 1 tab PO DAILY 03/19/18 [History] Tizanidine HCl [Tizanidine HCl] 4 mg PO TID PRN 03/19/18 [History] 3 Allergy/AdvReac Type Severity Reaction Status Date / Time aspirin [ASA] AdvReac See Verified 03/19/18 08:10 Comments NSAIDS (Non-Steroidal AdvReac See Verified 03/19/18 08:10 Anti-Inflamma Comments Tape Allergy Hives Uncoded 03/18/18 19:08 Results - Labs Result Diagrams: 03/19/18 03:40 03/19/18 03:40 Labs: Abnormal lab results WBC 15.1 K/mcL (4.3-11.1) H 03/19/18 03:40 RBC 5.37 M/mcL (3.82-4.97) H 03/19/18 03:40 MCV 82.7 fL (83.0-100.0) L 03/19/18 03:40 Plt Count 412 K/mcL (140-400) H 03/19/18 03:40 Neutrophils # 13.0 K/mcL (1.6-8.9) H 03/19/18 03:40 Carbon Dioxide 20 mEq/L (23-29) L 03/19/18 03:40 Creatinine 0.57 mg/dL (0.60-1.20) L 03/19/18 03:40 Glucose 214 mg/dL (70-105) H 03/19/18 03:40 Hemoglobin A1c 5.7 % (-5.6) H 03/19/18 03:40 Troponin I 0.07 ng/mL (< 0.04) H* 03/19/18 12:08 TSH 0.239 mcIU/mL (0.340-5.600) L 03/19/18 03:40 Urine Protein 100 mg/dL (Neg-Trace) H 03/18/18 22:03 Urine Glucose (UA) 100 mg/dL (Normal) H 03/18/18 22:03 Ur Leukocyte Esterase Small (Negative) H 03/18/18 22:03 Urine Microscopic WBC 5-15 per hpf (0-3) H 03/18/18 22:03 Ur Squamous Epith Cells Many per lpf (None-Few) H 03/18/18 22:03 Hyaline Casts Many per lpf (None-Few) H 03/18/18 22:03 Urine Mucus Many (Few) H 03/18/18 22:03 Ur Culture Indicated? NO. (NO) A 03/18/18 22:03 Urine Opiates Screen Positive ng/mL (Sbvmta=856) H 03/18/18 22:03 U Benzodiazepines Scrn Positive ng/mL (Focyzt=989) H 03/18/18 22:03 H & H 03/19/18 Range/Units 03:40 Hgb 15.4 (11.5-15.4) g/dL Hct 44.4 (35.3-44.9) % All other labs normal. Consult Discharge Plan - Plan Referrals: Ashli Dyer MD [Primary Care Provider] - 03/26/18 2:30 pm (Please fax discharge summary to [phone])
[2018-03-19] MEDS: traMADol 50 MG TABLET PO PRN (18:47)
--- NOTE | 2018-03-19 21:16 | Neurology - Consult Note ---
Date of Encounter: 03/19/18 Time of Encounter: 21:16 Assessment and Plan (1) Accelerated hypertension Current Visit: Yes Status: Acute I suspect that her headache was due to hypertensive emergency. I am not as convinced of a central nervous system infectious process. She has no nuchal rigidity, negative Kernig's and Brudzinski signs, no retro-ocular pain. Perhaps the white blood cell count is may be suggestive of an acute viremia. However this time her nervous system examination is completely normal. I would recommend hydration and ongoing pain management. I will reevaluate her tomorrow. If her headache is worse is still not considerably improved and I might anticipate considering a spinal tap at that time. At this point however I am content that the MRI scan of the brain, MRI of the cervical spine, CTA of the head and neck were all negative. History of Present Illness HPI: The chart was reviewed, the patient was seen and examined. Ms. Matthews is a 37 year old female case was discussed with the consulting hospitalist. Patient is a 37-year-old woman with a previous medical history of hypertension, fibromyalgia, diabetes mellitus and hyperlipidemia who presented to [facility] with an intense headache. She states that earlier that evening she in some friends were eating supper at [employer]. She states that she developed diarrhea even prior to leaving the restaurant. She states however that this happens commonly if she eats too much too fast. She thought this is what happened. However almost instantaneously she developed a very intense occipital nuchal headache. She denied photophobia or phonophobia however. However she left the restaurant and prior to their getting home she suggested that he come here to [facility] for further assessment because she had such a tremendous headache. She states that she feels better however she still categorize the headache is severe. She states that she has had headaches ongoing for 4 years now. She also has chronic neck pain. She was seen by Dr. Ward spine expert who was not impressed that the MRI revealed any significant neuroforaminal or spinal cord encroachment. I did review the study and I agree with his assessment. She currently sees a paint mixer hand in [place] who apparently did a nerve block on her last week and was planning to do a nerve ablation next week. She has been taking [place] for about one month now. She does seem to have a flat affect. Upon arrival to [facility] however her blood pressure was drastically elevated at 210/130. She denies of retro-orbital pain. She denies low back pain. Upon arrival to the ED upon arrival to the ED WBCs were elevated At 11.9. Today they have risen to 15.1. Neutrophil count is elevated at 13.0. Glucose is elevated at 214, troponins are elevated at 0.07. Urinalysis revealed elevated protein and glucose a small amount of leukocyte esterase. It was also positive for opiates and benzodiazepines. Past Med Surg Social Fam HX - Past Medical History Medical history: diabetes, fibromyalgia, hyperlipidemia, hypertension Additional medical history: Neck pain Psychiatric history: no psych history - Past Surgical History Surgical History: non-contributory Additional surgical history: gastric bypass - Social History Smoking Status: Never smoker Smokeless Tobacco Status: No Alcohol use: none Drug use: none Medications and Allergies ARIPiprazole [Abilify] 5 mg PO DAILY 03/19/18 [History] Cholecalciferol (Vitamin D3) [Vitamin D3] 10,000 unit PO DAILY 03/19/18 [History ] Duloxetine HCl [Cymbalta] 60 mg PO DAILY 03/19/18 [History] Gabapentin [Neurontin] 300 mg PO HS 03/19/18 [History] HYDROcodone/Acet 5/325 mg [[place] 5-325 mg] 1 tab PO Q8H PRN 03/19/18 [History] Multivitamin [One Daily Multivitamin] 1 tab PO DAILY 03/19/18 [History] Tizanidine HCl [Tizanidine HCl] 4 mg PO TID PRN 03/19/18 [History] 3 Allergy/AdvReac Type Severity Reaction Status Date / Time aspirin [ASA] AdvReac See Verified 03/19/18 08:10 Comments NSAIDS (Non-Steroidal AdvReac See Verified 03/19/18 08:10 Anti-Inflamma Comments Tape Allergy Hives Uncoded 03/18/18 19:08 All Systems: The remainder of the systems were reviewed and are negative Review of Systems: The balance of the systems review is negative. Physical Examination - Vital Signs Vital Signs: Initial Vital Signs Temp Pulse Resp BP Pulse Ox 98.2 F 110 20 210/131 98 03/18/18 19:08 03/18/18 19:08 03/18/18 19:08 03/18/18 19:08 03/18/18 19:08 - Neurologic Detailed motor examination: full strength in all major muscle groups Motor examination - right side: 5/5: deltoids, biceps, triceps, wrist flexion, wrist extension, leather belt shaper, hip flexors, tibialis Anterior, quadriceps, toe extension (EHL), plantarflexion Motor examination - left side: 55: deltoids, biceps, triceps, wrist flexion, wrist extension, hip flexors, leather belt shaper, quadriceps, tibialis Anterior, toe extension (EHL), plantarflexion Reflex and gait examination: other (I would also like to add that there is no nuchal rigidity. Kernig and Brudzinski signs are negative.) Mental Status Examination: awake, alert, oriented to person, oriented to place, oriented to time, follows commands appropriately, answers questions appropriately, no agnosia, no aphasia, no aproxia Mental Status Examination: From a mental status perspective patient is normal. She does have a flat affect , however gives a very informative and lucid history. Cranial nerve examination: PERRL, EOMI, visual solis intact, corneal reflexes brisk symmetrically, sensory to face intact, mastication intact, no facial asymmetry is present, no dysarthria, hearing is intact symmetrically, soft palate elevates bilaterally upon phonation, gag reflex intact, flexes SCM and trapezius muscles symmetrically with full power, tongue protrudes midline, no atrophy or facial fasiculations present Cerebellar examination: no dysmetria, performs finger to nose and heel to hdez symmetrically without ataxia, no gait ataxia, no truncal ataxia, no difficulty with rapid alternating movements Results - Laboratory Findings CBC and BMP: 03/19/18 03:40 03/19/18 03:40 Abnormal lab findings: Abnormal lab results WBC 15.1 K/mcL (4.3-11.1) H 03/19/18 03:40 RBC 5.37 M/mcL (3.82-4.97) H 03/19/18 03:40 MCV 82.7 fL (83.0-100.0) L 03/19/18 03:40 Plt Count 412 K/mcL (140-400) H 03/19/18 03:40 Neutrophils # 13.0 K/mcL (1.6-8.9) H 03/19/18 03:40 Carbon Dioxide 20 mEq/L (23-29) L 03/19/18 03:40 Creatinine 0.57 mg/dL (0.60-1.20) L 03/19/18 03:40 Glucose 214 mg/dL (70-105) H 03/19/18 03:40 Hemoglobin A1c 5.7 % (-5.6) H 03/19/18 03:40 Troponin I 0.07 ng/mL (< 0.04) H* 03/19/18 18:48 TSH 0.239 mcIU/mL (0.340-5.600) L 03/19/18 03:40 Urine Protein 100 mg/dL (Neg-Trace) H 03/18/18 22:03 Urine Glucose (UA) 100 mg/dL (Normal) H 03/18/18 22:03 Ur Leukocyte Esterase Small (Negative) H 03/18/18 22:03 Urine Microscopic WBC 5-15 per hpf (0-3) H 03/18/18 22:03 Ur Squamous Epith Cells Many per lpf (None-Few) H 03/18/18 22:03 Hyaline Casts Many per lpf (None-Few) H 03/18/18 22:03 Urine Mucus Many (Few) H 03/18/18 22:03 Ur Culture Indicated? NO. (NO) A 03/18/18 22:03 Urine Opiates Screen Positive ng/mL (Hrkomd=390) H 03/18/18 22:03 U Benzodiazepines Scrn Positive ng/mL (Fkmrsk=790) H 03/18/18 22:03 Consult Discharge Plan - Plan Referrals: Ashli Dyer MD [Primary Care Provider] - 03/26/18 2:30 pm (Please fax discharge summary to [phone])
[2018-03-19] MEDS: Gabapentin 300 MG CAPSULE PO SCH (21:42)
[2018-03-20] MEDS: *HR* OxyCODONE Immed Rel 5 MG TABLET PO PRN ×3 (04:13→17:33)
[2018-03-20] MEDS ORDERED: *HR* HYDROmorphone (PF) 1 MG/ML SYRINGE IVP ONE (06:30)
[2018-03-20] MEDS: *HR* Heparin 5,000 UNIT/ML VIAL SQ SCH ×2 (06:40→17:32)
[2018-03-20] MEDS: Insulin LISPRO 300 UNITS/3 ML VIAL SQ SCH ×3 (08:28→17:42)
[2018-03-20] MEDS: traMADol 50 MG TABLET PO PRN (08:31)
[2018-03-20] MEDS: ARIPiprazole 5 MG TABLET PO SCH (08:31)
[2018-03-20] MEDS: tiZANidine 4 MG TABLET PO PRN ×2 (08:31→17:33)
[2018-03-20] MEDS: Ondansetron 4 MG/2 ML VIAL IVP PRN ×2 (08:31→17:32)
[2018-03-20] MEDS: Cholecalciferol (D-3) 1,000 UNIT TABLET PO SCH (08:31)
[2018-03-20 11:19] LABS: Basophils # 0.1 K/mcL (0.0-0.2); Basophils % 0.5 %; Eosinophils # 0.1 K/mcL (0.0-0.6); Eosinophils % 0.5 %; Hemoglobin 14.6 g/dL (11.5-15.4); Immature Granulocytes % 0.4 % (0-4); Lymphocytes # 3.1 K/mcL (0.6-4.6); Lymphocytes % 30.1 %; Mean Corpuscular Hemoglobin 29.1 pg (28.0-33.3); Mean Corpuscular Volume 85.7 fL (83.0-100.0); Mean Platelet Volume 9.8 fL (9.4-12.4); Monocytes # 0.7 K/mcL (0.0-1.3); Monocytes % 6.2 %; Neutrophils # 6.5 K/mcL (1.6-8.9); Platelet Count 425 K/mcL (140-400); Red Blood Count 5.02 M/mcL (3.82-4.97); Red Cell Distribution Width 12.4 % (11.5-14.5); Segmented Neutrophils % 62.3 %
[2018-03-20 11:38] LABS: BUN/Creatinine Ratio 22 (6-26); Blood Urea Nitrogen 19 mg/dL (6-20); Calcium 9.6 mg/dL (8.6-10.3); Carbon Dioxide 27 mEq/L (23-29); Chloride 102 mEq/L (98-107); Glucose 179 mg/dL (70-105); Osmolality,Calculated 295 (280-300); Potassium 4.5 mEq/L (3.5-5.1); Sodium 139 mEq/L (136-145); eGFR For Non-African Americans > 60 (> 60)
--- NOTE | 2018-03-20 15:00 | Neurology Progress Note ---
Date of Encounter: 03/20/18 Time of Encounter: 14:58 Assessment and Plan (1) Accelerated hypertension Current Visit: Yes Status: Acute Patient's blood pressure has been improved. However today and overnight she is been slightly febrile. She still complains of severe pain in the in the occipital nuchal region. She does not however have nuchal rigidity. At this point I will move forward with a lumbar puncture. If the lumbar puncture is negative then I would attribute her pain to perhaps viral causes. Subjective Interval history: Chart reviewed, patient was seen and examined. Currently she is sitting up in the chair does not appear to be any acute distress. However states that she has "severe pain" in the back of her head. She has no nuchal rigidity however. No retro-ocular pain. She has been slightly febrile overnight however. Objective - Constitutional Vitals: Temp Pulse Resp BP Pulse Ox 100.6 F H 105 18 106/76 97 03/20/18 11:24 03/20/18 11:24 03/20/18 11:24 03/20/18 11:24 03/20/18 11:24 - Neurological Exam Motor Examination: Present: full strength in all major muscle groups Motor examination - right side: 5/5: deltoids, biceps, triceps, postage machine operator, hip flexors, tibialis Anterior, quadriceps, toe extension (EHL), plantarflexion Motor examination - left side: 5/5: deltoids, biceps, triceps, wrist flexion, wrist extension, hip flexors, postage machine operator, quadriceps, tibialis Anterior, toe extension (EHL), plantarflexion Reflex and gait examination: other (I would also like to add that there is no nuchal rigidity. Kernig and Brudzinski signs are negative.) Mental Status Examination: Present: awake, alert, oriented to person, oriented to place, oriented to time, follows commands appropriately, answers questions appropriately, no agnosia, no aphasia, no aproxia Cranial nerve examination: Present: PERRL, EOMI, visual solis intact, corneal reflexes brisk symmetrically, sensory to face intact, mastication intact, no facial asymmetry is present, no dysarthria, hearing is intact symmetrically, soft palate elevates bilaterally upon phonation, gag reflex intact, flexes SCM and trapezius muscles symmetrically with full power, tongue protrudes midline, no atrophy or facial fasiculations present Cerebellar examination: Present: no dysmetria, performs finger to nose and heel to hdez symmetrically without ataxia, no gait ataxia, no truncal ataxia, no difficulty with rapid alternating movements - VTE Documentation of Mechanical Device: Intermittent pneumatic compression device Results - Laboratory Findings CBC and BMP: 03/20/18 07:55 03/20/18 07:55 Abnormal lab findings: Abnormal lab results RBC 5.02 M/mcL (3.82-4.97) H 03/20/18 07:55 Plt Count 425 K/mcL (140-400) H 03/20/18 07:55 Glucose 179 mg/dL (70-105) H 03/20/18 07:55 POC Glucose 139 mg/dL (70-99) H 03/19/18 21:27 Hemoglobin A1c 5.7 % (-5.6) H 03/19/18 03:40 Troponin I 0.07 ng/mL (< 0.04) H* 03/19/18 18:48 TSH 0.239 mcIU/mL (0.340-5.600) L 03/19/18 03:40 Urine Protein 100 mg/dL (Neg-Trace) H 03/18/18 22:03 Urine Glucose (UA) 100 mg/dL (Normal) H 03/18/18 22:03 Ur Leukocyte Esterase Small (Negative) H 03/18/18 22:03 Urine Microscopic WBC 5-15 per hpf (0-3) H 03/18/18 22:03 Ur Squamous Epith Cells Many per lpf (None-Few) H 03/18/18 22:03 Hyaline Casts Many per lpf (None-Few) H 03/18/18 22:03 Urine Mucus Many (Few) H 03/18/18 22:03 Ur Culture Indicated? NO. (NO) A 03/18/18 22:03 Urine Opiates Screen Positive ng/mL (Qwurfk=130) H 03/18/18 22:03 U Benzodiazepines Scrn Positive ng/mL (Ikqpxn=855) H 03/18/18 22:03 Consult Discharge Plan - Plan Referrals: Ashli Dyer MD [Primary Care Provider] - 03/26/18 2:30 pm (Please fax discharge summary to [phone])
--- NOTE | 2018-03-20 15:38 | Event Note ---
Date of Encounter: 03/20/18 Time of Encounter: 15:36 Lumbar puncture note. Preop diagnosis: Intractable headache with slight fever Postop diagnosis: Same as above. Patient was placed in the upright sitting position, landmarks were assessed and localized to the L3-L4 disc interspace. Patient was then prepped and draped in the normal sterile fashion. The L3-L4 disc interspace was anesthetized with 1% lidocaine. A 20-gauge spinal needle was introduced into the L3-L4 disc interspace. Clear and colorless cerebral spinal fluid was expelled. A total of 8 mL of clear colorless cerebral spinal fluid was collected. The spinal needle was then removed, hemostasis achieved. Patient tolerated the procedure without difficulty. CSF is sent to the laboratory for further analysis.
--- NOTE | 2018-03-20 16:00 | Internal Med Progress Note ---
Hospitalist Progress Note - Encounter Date of Encounter: 03/20/18 Time of Encounter: 15:58 - Subjective Interval History: Still complaining of neck and occipital headache but better rating 6 x 10 . Also had low-grade temperature. Blood pressure better today. Denies any nausea vomiting tingling numbness motor weakness, loss of consciousness, seizure, vision change, urinary bowel incontinence, chest pain shortness of breath. Review the lab with normal white count - Exam Vitals: Temp Pulse Resp BP Pulse Ox 99.6 F 102 18 121/85 94 03/20/18 15:48 03/20/18 15:48 03/20/18 15:48 03/20/18 15:48 03/20/18 15:48 Exam: General appearance: Mild distress due to pain, A&O X 3 Head exam: Atraumatic Eye exam: EOMI, PERRLA ENT exam: Moist oral mucosa Neck nontender, supple Respiratory exam: Clear to auscultation bilaterally Cardiovascular exam: Regular rate and rhythm, no systolic murmur Abdominal exam: Soft, nontender, nondistended, positive bowel sounds Extremities exam: No calf tenderness, no pedal edema Present: Skin-no rash, warm, dry, intact Neurological exam: CN II-XII intact, no focal deficits. No facial droop. Normal speech. Motor 5 x 5 in all 4 extremities - Assessment and Plan (1) Headache Current Visit: Yes Status: Acute Assessment and Plan: Better Occipital headache with unclear etiology. Patient also had low-grade fever though white count normal. Discussed with neurologist about further plan of care and he decided to perform lumbar puncture and will wait for the report to decide whether she needs any antibiotic coverage. Headache could be still due to accelerated hypertension but that is also getting better. Close monitoring and symptomatic management. Pending report of CT abdomen to r/o any masses (2) Hypertensive emergency Current Visit: Yes Status: Acute Assessment and Plan: Hypertensive emergency with acute hypertensive encephalopathy with headache, nausea and vomiting. Now off labetalol drip. Better blood pressure on beta antonio and lisinopril and adjusted the dose today. Continue close monitoring of BP. (3) Atrial fibrillation with rapid ventricular response Current Visit: Yes Status: Acute Assessment and Plan: Transient. Off from Cardizem drip. Heart rate better controlled on beta antonio and will titrate if needed. (4) Hypokalemia Current Visit: Yes Status: Acute Assessment and Plan: Replaced (5) Leukocytosis Current Visit: Yes Status: Acute Assessment and Plan: Normal white count now but had low-grade fever today. Urinalysis and chest x- ray with no acute finding. If further a spike in temperature will consider repeat chest x-ray, blood culture urine culture to rule out underlying infection etiology. (6) Diabetes Current Visit: Yes Status: Acute Assessment and Plan: On insulin LDSS (7) DVT prophylaxis Current Visit: Yes Status: Acute Assessment and Plan: Heparin sc - Time Spent with Patient Total time spent is greater than 50% in coordination of care (as documented) at patient's floor/unit and/or counseling patient: 25 - 35 minutes Internal Medicine: Result - Labs CBC & Chem 7: 03/20/18 07:55 03/20/18 07:55 Labs: Short CBC 03/20/18 Range/Units 07:55 WBC 10.4 (4.3-11.1) K/mcL Hgb 14.6 (11.5-15.4) g/dL Hct 43.0 (35.3-44.9) % Plt Count 425 H (140-400) K/mcL Neutrophils # 6.5 (1.6-8.9) K/mcL BMP 03/20/18 07:55 Sodium 139 Potassium 4.5 Chloride 102 Carbon Dioxide 27 BUN 19 Creatinine 0.86 Glucose 179 H Calcium 9.6 Cardiac Enzymes 03/19/18 Range/Units 18:48 Troponin I 0.07 H* (< 0.04) ng/mL - Impressions Impressions Cervical Spine MRI 03/19/18 11:24 IMPRESSION: Wroc-xr-oictuzci cervical spondylosis. D/ / 03/19/2018 14:10:44 Terrell Jeffers MD / Monica Shook Interpreting Provider: Terrell Jeffers MD Abdomen CT 03/20/18 13:30 IMPRESSION: Injection the fat left pericolic gutter with trace fluid of uncertain etiology. Wall thickening of the colon is seen in this region, either due to incomplete distention or wall thickening from mild colitis Left renal cyst. No definite adrenal mass identified. D/ / Fernando Brantley MD / Fernando Brantley MD Interpreting Provider: Fernando Brantley MD - VTE Documentation of Mechanical Device: Intermittent pneumatic compression device Consult Discharge Plan - Plan Referrals: Ashli Dyer MD [Primary Care Provider] - 03/26/18 2:30 pm (Please fax discharge summary to [phone]) (1) Headache Qualifiers: Headache type: unspecified Headache chronicity pattern: acute headache Intractability: intractable Qualified Code(s): R51 - Headache (5) Leukocytosis Qualifiers: Leukocytosis type: unspecified Qualified Code(s): D72.829 - Elevated white blood cell count, unspecified (6) Diabetes Qualifiers: Qualified Code(s): E11.9 - Type 2 diabetes mellitus without complications
[2018-03-20 16:10] LABS: Red Blood Cell,CSF < 0.002 M/mcL
[2018-03-20 16:28] LABS: Glucose,CSF 86 mg/dL (40-70); Total Protein,CSF 58 mg/dL (15-45)
[2018-03-20 16:47] LABS: Appearance,CSF Clear (Clear)
[2018-03-20] MEDS ORDERED: 0.9 % Sodium Chloride 500 ML IVC ONE (19:55)
[2018-03-20] MEDS ORDERED: 0.9 % Sodium Chloride 500 ML ONE (19:56)
[2018-03-20] MEDS: Gabapentin 300 MG CAPSULE PO SCH (20:19)
[2018-03-21] MEDS: *HR* OxyCODONE Immed Rel 5 MG TABLET PO PRN ×2 (00:51→04:54)
[2018-03-21 04:52] LABS: Basophils # 0.1 K/mcL (0.0-0.2); Basophils % 0.7 %; Eosinophils # 0.1 K/mcL (0.0-0.6); Eosinophils % 1.2 %; Hematocrit 40.9 % (35.3-44.9); Hemoglobin 13.9 g/dL (11.5-15.4); Immature Granulocytes % 0.5 % (0-4); Lymphocytes # 3.9 K/mcL (0.6-4.6); Mean Corpuscular Volume 85.2 fL (83.0-100.0); Mean Platelet Volume 9.7 fL (9.4-12.4); Monocytes # 0.7 K/mcL (0.0-1.3); Monocytes % 8.1 %; Neutrophils # 3.7 K/mcL (1.6-8.9); Platelet Count 294 K/mcL (140-400); Red Cell Distribution Width 12.2 % (11.5-14.5); Segmented Neutrophils % 43.5 %
[2018-03-21 04:59] LABS: Prothrombin Time 11.7 Seconds (9.4-12.1)
[2018-03-21] MEDS: *HR* Heparin 5,000 UNIT/ML VIAL SQ SCH ×2 (05:00→17:02)
[2018-03-21 05:15] LABS: BUN/Creatinine Ratio 32 (6-26); Blood Urea Nitrogen 22 mg/dL (6-20); Calcium 9.7 mg/dL (8.6-10.3); Carbon Dioxide 28 mEq/L (23-29); Chloride 103 mEq/L (98-107); Glucose 118 mg/dL (70-105); Osmolality,Calculated 292 (280-300); Potassium 3.9 mEq/L (3.5-5.1); Sodium 139 mEq/L (136-145); eGFR For Non-African Americans > 60 (> 60)
[2018-03-21] MEDS: traMADol 50 MG TABLET PO PRN ×3 (07:54→23:24)
[2018-03-21] MEDS: ARIPiprazole 5 MG TABLET PO SCH (07:54)
[2018-03-21] MEDS: Cholecalciferol (D-3) 1,000 UNIT TABLET PO SCH (07:54)
[2018-03-21] MEDS: Insulin LISPRO 300 UNITS/3 ML VIAL SQ SCH ×3 (07:59→17:03)
--- NOTE | 2018-03-21 10:27 | Neurology Progress Note ---
Date of Encounter: 03/21/18 Time of Encounter: 10:25 Assessment and Plan (1) Accelerated hypertension Current Visit: Yes Status: Acute At this juncture, I expect that the initial headache was likely due to hypertensive emergency. However I find no evidence to suggest a neurologic etiology for this ongoing head pain. She is also been seen by spine, who was not convinced that her spinal MRI gave a suitable explanation. Her neurologic examination is nonfocal. Neuroimaging of the of the brain was unrevealing. Lumbar puncture is essentially normal. At this juncture I will return her to the care of her primary care provider or pain management for further assessment. However at this point I see no evidence of acute ongoing neurologic emergency/urgency. I am not certain that the tachycardia however has been explained. Otherwise I will sign off, and reevaluate at your request. Subjective Interval history: The chart was reviewed, the patient was seen and examined. Patient was up and walking around the room when I entered. Her gait was normal without any instability. She does not appear to have any significant discomfort when ambulating. She states that she still has significant amount of head and neck pain. She does have a flat affect. Facial expressions and body language however do not reflect the severe level of pain that she states. She has no nuchal rigidity. She does not appear to have any discomfort with head or neck movements. Lumbar puncture was negative for evidence of an infectious process. Gram stain is negative for bacteria. Elevated protein is likely secondary to lack of activity. She has been tachycardic however. But she has been afebrile. A white count is resolved. Objective - Constitutional Vitals: Temp Pulse Resp BP Pulse Ox 98.8 F 112 18 158/108 97 03/21/18 06:59 03/21/18 06:59 03/21/18 06:59 03/21/18 08:00 03/21/18 06:59 - Neurological Exam Motor Examination: Present: full strength in all major muscle groups Motor examination - right side: 5/5: deltoids, biceps, triceps, heart specialist, hip flexors, tibialis Anterior, quadriceps, toe extension (EHL), plantarflexion Motor examination - left side: 5/5: deltoids, biceps, triceps, wrist flexion, wrist extension, hip flexors, heart specialist, quadriceps, tibialis Anterior, toe extension (EHL), plantarflexion Reflex and gait examination: other (I would also like to add that there is no nuchal rigidity. Kernig and Brudzinski signs are negative.) Mental Status Examination: Present: awake, alert, oriented to person, oriented to place, oriented to time, follows commands appropriately, answers questions appropriately, no agnosia, no aphasia, no aproxia Cranial nerve examination: Present: PERRL, EOMI, visual solis intact, corneal reflexes brisk symmetrically, sensory to face intact, mastication intact, no facial asymmetry is present, no dysarthria, hearing is intact symmetrically, soft palate elevates bilaterally upon phonation, gag reflex intact, flexes SCM and trapezius muscles symmetrically with full power, tongue protrudes midline, no atrophy or facial fasiculations present Cerebellar examination: Present: no dysmetria, performs finger to nose and heel to hdez symmetrically without ataxia, no gait ataxia, no truncal ataxia, no difficulty with rapid alternating movements - VTE Documentation of Mechanical Device: Intermittent pneumatic compression device Results - Laboratory Findings CBC and BMP: 03/21/18 04:20 03/21/18 04:20 Abnormal lab findings: Abnormal lab results BUN 22 mg/dL (6-20) H 03/21/18 04:20 BUN/Creatinine Ratio 32 (6-26) H 03/21/18 04:20 Glucose 118 mg/dL (70-105) H 03/21/18 04:20 POC Glucose 124 mg/dL (70-99) H 03/20/18 19:32 Hemoglobin A1c 5.7 % (-5.6) H 03/19/18 03:40 Troponin I 0.07 ng/mL (< 0.04) H* 03/19/18 18:48 TSH 0.239 mcIU/mL (0.340-5.600) L 03/19/18 03:40 Urine Protein 100 mg/dL (Neg-Trace) H 03/18/18 22:03 Urine Glucose (UA) 100 mg/dL (Normal) H 03/18/18 22:03 Ur Leukocyte Esterase Small (Negative) H 03/18/18 22:03 Urine Microscopic WBC 5-15 per hpf (0-3) H 03/18/18 22:03 Ur Squamous Epith Cells Many per lpf (None-Few) H 03/18/18 22:03 Hyaline Casts Many per lpf (None-Few) H 03/18/18 22:03 Urine Mucus Many (Few) H 03/18/18 22:03 Ur Culture Indicated? NO. (NO) A 03/18/18 22:03 CSF Glucose 86 mg/dL (40-70) H 03/20/18 15:30 CSF Total Protein 58 mg/dL (15-45) H 03/20/18 15:30 Urine Opiates Screen Positive ng/mL (Rexgeb=[id number]) H 03/18/18 22:03 U Benzodiazepines Scrn Positive ng/mL (Vwwtnh=035) H 03/18/18 22:03 Consult Discharge Plan - Plan Referrals: Ashli Dyer MD [Primary Care Provider] - 03/26/18 2:30 pm (Please fax discharge summary to [phone])
--- NOTE | 2018-03-21 11:57 | Internal Med Progress Note ---
Hospitalist Progress Note - Encounter Date of Encounter: 03/21/18 Time of Encounter: 11:55 - Subjective Interval History: Patient was seen at the bedside she claims that her pain is about 5/10 in severity and located in her neck and does radiate to the side of her arm on both sides. She also complains of occipital headache and she did not have any fevers overnight. Yesterday she had an issue with her blood pressure when she had a low reading a later half of the day this was after her lisinopril was increased to 20 mg. Her is at the bedside and also tells me that she has been zoning in and out. This happened yesterday as well but she was able to come out of it. - Exam Vitals: Temp Pulse Resp BP Pulse Ox 99.3 F 93 18 139/108 94 03/21/18 11:18 03/21/18 11:18 03/21/18 11:18 03/21/18 11:18 03/21/18 11:18 Exam: GENERAL: Alert, moderate distress, stating in the distance but able to answer questions appropriately., cooperative EYES: Pupils are sluggishly responsive to light bilaterally. They are mildly dilated. EARS: External ears normal, canals clear OROPHARYNX: Lips, mucosa, and tongue normal. Teeth and gums normal. Oropharynx normal. NECK: No jugulovenous distention, No carotid bruits, Carotid pulse normal contour, Supple LUNGS: Lungs clear to auscultation, Good diaphragmatic excursion CARDIAC: Normal S1 and S2; no rubs, murmurs, or gallops ABDOMEN: Abdomen soft, non-tender, BS normal, No masses or organomegaly EXTREMITIES: Extremities normal, no deformities, edema, clubbing or skin discoloration. Good capillary refill., No ulcers NEURO: Gait were not tested. Negative Kernig's or Brudzinski sign. Reflexes normal and symmetric. Power is equal in both upper and lower extremities .Sensation grossly intact, Cranial nerves II-XII intact PULSES: 2+ radial, 2+ carotid Rest of the exam is non contributory - Assessment and Plan (1) Metabolic encephalopathy Current Visit: Yes Status: Acute Assessment and Plan: Patient has acute metabolic encephalopathy most likely as a result of accelerated hypertension, hypotension yesterday with an Hypertensives as well as overuse of pain medications. I will continue to watch her neurological status closely. Her neuro exam except for some sluggish pupils is otherwise nonfocal and she is able to respond to questions and answer appropriately. I will hold her oxycodone at this point and switch her to IV Toradol in addition to tramadol and this has been conveyed to the nursing staff. We will closely monitor her neuro status today (2) Headache Current Visit: Yes Status: Acute Assessment and Plan: Better Occipital headache with unclear etiology. Patient also had low-grade fever though white count normal. Discussed with neurologist about further plan of care and he decided to perform lumbar puncture and will wait for the report to decide whether she needs any antibiotic coverage. Headache could be still due to accelerated hypertension but that is also getting better. Close monitoring and symptomatic management. Pending report of CT abdomen to r/o any masses 03/21-abdominal CT scan was negative for any adrenal masses I believe patient's headache is most likely secondary to her pain. She had already has degenerative spine disease in the cervical region for which a plan of care is been formulated for outpatient versus inpatient. She usually takes a 5/325 Percocet at home 3 times a day and here she is getting 20 mg of Roxicodone ordered every 4 hours. She got 2 doses of this yesterday and her blood pressure bottomed out. I will hold her oxycodone completely at this point and change her to IV Toradol 30 mg every 6 hours when necessary severe pain. I would leave the tramadol on for when necessary breakthrough Her blood pressure is in response to pain and we control the pain and her blood pressure should be better is what I believe. Neurological workup has been negative and appreciate neurology input. Her CSF is negative and a negative CTA and MRI workup does not point towards a intracranial source for her headaches. (3) Hypertensive emergency Current Visit: Yes Status: Acute Assessment and Plan: Hypertensive emergency with acute hypertensive encephalopathy with headache, nausea and vomiting. Now off labetalol drip. Better blood pressure on beta antonio and lisinopril and adjusted the dose today. Continue close monitoring of BP. 03/21-her blood pressure is better tolerated today. I would however down titrate her lisinopril given the events yesterday. I will continue her 10 mg of lisinopril and beta antonio 50 mg twice a day for now I did monitor blood pressure very closely. I believe her hypertensive urgency was most likely because of pain (4) Atrial fibrillation with rapid ventricular response Current Visit: Yes Status: Acute Assessment and Plan: Transient. Off from Cardizem drip. Heart rate better controlled . We will continue to follow on beta antonio. (5) Hypokalemia Current Visit: Yes Status: Acute Assessment and Plan: Resolved (6) Diabetes Current Visit: Yes Status: Acute Assessment and Plan: Continue insulin sliding scale. (7) DVT prophylaxis Current Visit: Yes Status: Acute Assessment and Plan: Heparin sc (8) Leukocytosis Current Visit: Yes Status: Acute Assessment and Plan: Normal white count now but had low-grade fever today. Urinalysis and chest x- ray with no acute finding. If further a spike in temperature will consider repeat chest x-ray, blood culture urine culture to rule out underlying infection etiology. DVT Prophylaxis: Subacute heparin - Time Spent with Patient Total time spent is greater than 50% in coordination of care (as documented) at patient's floor/unit and/or counseling patient: Greater than 35 minutes Plan of Care Discussed with: nurse (Discussed plan of care with patient, family , nurse at the bedside) Internal Medicine: Result - Labs CBC & Chem 7: 03/21/18 04:20 03/21/18 04:20 Labs: Short CBC 03/21/18 Range/Units 04:20 WBC 8.5 (4.3-11.1) K/mcL Hgb 13.9 (11.5-15.4) g/dL Hct 40.9 (35.3-44.9) % Plt Count 294 (140-400) K/mcL Neutrophils # 3.7 (1.6-8.9) K/mcL BMP 03/21/18 04:20 Sodium 139 Potassium 3.9 Chloride 103 Carbon Dioxide 28 BUN 22 H Creatinine 0.68 Glucose 118 H Calcium 9.7 - ABG Interpretation ABG results: PT/INR, D-dimer PT 11.7 Seconds (9.4-12.1) 03/21/18 04:20 - VTE Documentation of Mechanical Device: Intermittent pneumatic compression device Consult Discharge Plan - Plan Referrals: Ashli Dyer MD [Primary Care Provider] - 03/26/18 2:30 pm (Please fax discharge summary to [phone]) (2) Headache Qualifiers: Headache type: unspecified Headache chronicity pattern: acute headache Intractability: intractable Qualified Code(s): R51 - Headache (6) Diabetes Qualifiers: Qualified Code(s): E11.9 - Type 2 diabetes mellitus without complications (8) Leukocytosis Qualifiers: Leukocytosis type: unspecified Qualified Code(s): D72.829 - Elevated white blood cell count, unspecified
[2018-03-21] MEDS: Ketorolac 30 MG/ML VIAL IVP PRN ×2 (13:32→19:56)
[2018-03-21] MEDS: Gabapentin 300 MG CAPSULE PO SCH (19:56)
[2018-03-21] MEDS: tiZANidine 4 MG TABLET PO PRN (23:24)
[2018-03-21] MEDS: Ondansetron 4 MG/2 ML VIAL IVP PRN (23:30)
[2018-03-22] MEDS: Ketorolac 30 MG/ML VIAL IVP PRN ×2 (02:21→08:45)
[2018-03-22] MEDS: *HR* Heparin 5,000 UNIT/ML VIAL SQ SCH (05:40)
[2018-03-22] MEDS: traMADol 50 MG TABLET PO PRN (05:45)
[2018-03-22] MEDS: tiZANidine 4 MG TABLET PO PRN (05:45)
[2018-03-22 07:43] VITALS: BP 105/66
[2018-03-22] MEDS: Insulin LISPRO 300 UNITS/3 ML VIAL SQ SCH (07:47)
--- NOTE | 2018-03-22 07:53 | Discharge Summary ---
- NOTES TO OUTPATIENT PROVIDER Notes to Outpatient Provider: Follow up with PCP in 2-3 days after discharge. Recheck blood pressure at that time and adjust anti-hypertensives as necessary. Follow up on final hospital CSF and blood cultures at that time. Follow up with pain management physician on 03/26/18 as scheduled. Orders not resulted at time of discharge: Pending orders 03/19/18 07:09 Culture,Blood [BC] Routine 03/20/18 15:30 Culture,CSF [RM] Stat Date of Encounter: 03/22/18 Time of Encounter: 07:51 - Discharge Diagnosis (1) Metabolic encephalopathy Priority: Primary Status: Resolved (2) Hypertensive emergency Priority: Secondary Status: Resolved (3) Headache Priority: Secondary Status: Chronic Qualifiers: Headache type: unspecified Headache chronicity pattern: acute headache Intractability: intractable Qualified Code(s): R51 - Headache (4) Atrial fibrillation with rapid ventricular response Priority: Secondary Status: Resolved (5) Hypokalemia Priority: Secondary Status: Resolved (6) Diabetes Priority: Secondary Status: Resolved Qualifiers: Diabetes mellitus type: type 2 Diabetes mellitus longterm insulin use: without longterm use Diabetes mellitus complication status: without complication Qualified Code(s): E11.9 - Type 2 diabetes mellitus without complications (7) Leukocytosis Priority: Secondary Status: Resolved Qualifiers: Leukocytosis type: unspecified Qualified Code(s): D72.829 - Elevated white blood cell count, unspecified (8) DVT prophylaxis Priority: Secondary Status: Acute Hospital course: Ms. Matthews is a 37 year old female admitted for headache, metabolic encephalopathy, and hypertensive urgency. Patient was admitted to step down unit with telemetry. She was started on labetalol drip and cardizem drip, and then amiodarone drip. She was given reglan, bendadryl, and toradol for headache. Cardiology was consulted. They weaned her off labetalol drip and started lopressor PO. MRI brain was obtained and was unremarkable. Cervical spine CT showed [id number] cervical spondylosis. Neurology and spinal surgery were consulted. Surgery determined that she did not require any surgical intervention. Neurology determined that her headache was likely secondary to hypertensive urgency. CTA of the head and neck were unremarkable. Lumbar puncture was negative. She is back to baseline mentation, but still has head/neck pain. 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 She has appointment with pain management physician on 03/26/18. We will set up follow up with PCP in 2-3 days after discharge. Patient has met maximum benefit of this hospitalization and will be discharged home in stable condition. Discharge discussed with: patient, nurse, other (Pharmacist) - Time Spent with Patient Total time spent providing and/or coordinating discharge services: Less than 30 minutes - Discharge Medications Prescriptions: Metoprolol [Lopressor] 50 mg PO BID 7 Days #14 tablet Home Medications: ARIPiprazole [Abilify] 5 mg PO DAILY 03/19/18 [History] Cholecalciferol (Vitamin D3) [Vitamin D3] 10,000 unit PO DAILY 03/19/18 [History ] Duloxetine HCl [Cymbalta] 60 mg PO DAILY 03/19/18 [History] Gabapentin [Neurontin] 300 mg PO HS 03/19/18 [History] Multivitamin [One Daily Multivitamin] 1 tab PO DAILY 03/19/18 [History] Tizanidine HCl 4 mg PO TID PRN 03/19/18 [History] Atorvastatin [Lipitor] 40 mg PO HS tablet 03/22/18 [Rx] Metoprolol [Lopressor] 50 mg PO BID 7 Days #14 tablet 03/22/18 [Rx] Allergies/Adverse Reactions: 3 Allergy/AdvReac Type Severity Reaction Status Date / Time aspirin [ASA] AdvReac See Verified 03/19/18 08:10 Comments NSAIDS (Non-Steroidal AdvReac See Verified 03/19/18 08:10 Anti-Inflamma Comments Tape Allergy Hives Uncoded 03/18/18 19:08 Date of admission: 03/19/18 00:54 Primary care physician: Ashli Dyer MD Consults: 03/19/18 06:41 Consult to Cardiology [CONS] Routine Comment: Consulting Provider: [facility] Reason for Consult: afib with RVR, resistant to cardizem Call Completed: Yes 03/19/18 11:21 Consult to Orthopedic Surgery [CONS] Routine Consulting Provider: [facility] Reason for Consult: Severe neck pain with herniated disc Call Completed: Yes 03/19/18 11:34 Consult to Neurology [CONS] Routine Consulting Provider: [facility] Reason for Consult: severe [place] Call Completed: Yes Discharging clinician: Frantz Brennan Anticipated date of discharge: 03/22/18 - Constitutional Vitals: Temp Pulse Resp BP Pulse Ox 98.8 F 110 18 105/66 96 03/22/18 07:41 03/22/18 07:41 03/22/18 07:41 03/22/18 07:41 03/22/18 07:41 General appearance: Present: cooperative, A&O X 3, pleasant, no acute distress, answers questions appropriately - Eye Eye exam: Present: EOMI, PERRL. Absent: conjunctival injection, nystagmus, scleral icterus - Respiratory Respiratory exam: Present: CTAB. Absent: accessory muscle use, rales, rhonchi, wheezes Additional comments: Normal WOB - Cardiovascular Cardiovascular exam: Present: RRR, +S1, +S2. Absent: diastolic murmur, gallop, rubs, systolic murmur Additional comments: No BLE edema - GI/Abdominal GI/Abdominal exam: Present: normal bowel sounds, soft. Absent: distended, hepatomegaly, mass, splenomegaly, tenderness - Neurological Exam Neurological exam: Present: alert, CN II-XII intact, oriented X3, no focal deficits, strengths equal and symetr throughout. Absent: motor sensory deficit , facial droop, speech deficit - Psychiatric Psychiatric exam: Present: normal affect, normal mood. Absent: agitated, anxious, depressed - Skin Skin exam: Present: dry, intact, warm. Absent: cyanosis, rash - Patient Status Disposition: Home, Self-Care Condition: Good Overall status at discharge: patient is progressing back to baseline - Discharge Instructions Follow Up With: Ashli Dyer MD [Primary Care Provider] - 03/26/18 2:30 pm (Please fax discharge summary to [phone]) Additional Instructions: Follow up with PCP in 2-3 days after discharge. Recheck blood pressure at that time and adjust anti-hypertensives as necessary. Follow up on final hospital CSF and blood cultures at that time. Follow up with pain management physician on 03/26/18 as scheduled. - Diet and Activity Activity: resume usual activities as tolerated Diet: diabetic diet, low fat, low cholesterol, low salt diet, other (Cardiac Diet)
[2018-03-22] MEDS: Cholecalciferol (D-3) 1,000 UNIT TABLET PO SCH (08:45)
[2018-03-22] MEDS: ARIPiprazole 5 MG TABLET PO SCH (08:45)
--- NOTE | 2018-03-22 10:16 | Event Note ---
<Merced Fields Asad - Last Filed: 03/22/18 10:12> Date of Encounter: 03/22/18 Time of Encounter: 10:12 - Cardiology Event Note Echocardiogram reviewed from 03/19/18 EF 65%, mild to moder concentric LVH, mild LVD dysfuction, normal RVS and Function, mild TR, no pulm HTN, there is small pericardial effusion Recommend follow up echocardiogram outpatient to reassess pericardial effusion. Recommend aspirin 81 mg with new onset atrial fibrillation RVR, rate controlled at time of discharge, however, given history of gastic bypass, would recommend follow up with GI for further aspirin evaluation. <Gregoria Concepcion - Last Filed: 03/23/18 13:41> Date of Encounter: 03/23/18 - Cardiology Event Note Took over Cardiology Inpatient Service 03/22/18. Patient left before I was able to see her and not previously known to me. I reviewed the medical notes and echo findings. Discussed case with Test Eng. Plan was for medical management and aspirin for CVA prevention. Patient will follow up as an outpatient in the Cardiology office.
== END 2018-03-22 10:06 | disposition home or self-care (01) | DRG 199 ==
LOC: 2NNU 18:56 → EMEROO 18:56 → SUATTDRO 03-19 00:54 → 2NNU 03-19 02:59
PROVIDERS: ADMIT Internal Medicine; ATTEND Internal Medicine

== ENCOUNTER 2019-03-22 18:29 | Inpatient (IN) ==
[2019-03-22] MEDS ORDERED: 0.9 % Sodium Chloride 1,000 ML IVC ONE ×2 (18:43→20:03)
[2019-03-22] MEDS ORDERED: Isovue-370 500 ML BOTTLE IVP ONE (18:56)
[2019-03-22 19:23] LABS: Basophils # 0.1 K/mcL (0.0-0.2); Basophils % 0.6 %; Eosinophils # 0.2 K/mcL (0.0-0.6); Eosinophils % 1.8 %; Hematocrit 38.2 % (35.3-44.9); Hemoglobin 11.7 g/dL (11.5-15.4); Immature Granulocytes % 0.3 % (0-4); Lymphocytes % 38.1 %; Mean Corpuscular HGB Conc 30.6 g/dL (31.6-35.5); Mean Corpuscular Hemoglobin 28.6 pg (28.0-33.3); Mean Corpuscular Volume 93.4 fL (83.0-100.0); Mean Platelet Volume 9.9 fL (9.4-12.4); Monocytes # 0.9 K/mcL (0.0-1.3); Monocytes % 8.5 %; Neutrophils # 5.4 K/mcL (1.6-8.9); Platelet Count 358 K/mcL (140-400); Red Blood Count 4.09 M/mcL (3.82-4.97); Red Cell Distribution Width 12.5 % (11.5-14.5); Segmented Neutrophils % 50.7 %; White Blood Count 10.6 K/mcL (4.3-11.1)
[2019-03-22 19:52] LABS: Calcium 9.3 mg/dL (8.6-10.3); Potassium 4.2 mEq/L (3.5-5.1)
[2019-03-22 20:10] LABS: Bilirubin,Urine Small (Negative); Blood,Urine Negative (Negative); Clarity,Urine Cloudy (Clear); Color,Urine Yellow (Yellow); Glucose,Urine (UA) Normal (Normal); Ketones,Urine Negative (Negative); Leukocyte Esterase,Urine Negative (Negative); Nitrite,Urine Negative (Negative); Protein,Urine Trace mg/dL (Neg-Trace); Specific Gravity,Urine 1.015 (1.010-1.025); Urobilinogen,Urine Normal (Normal)
[2019-03-22 20:12] LABS: Bacteria,Urine None Seen per hpf (None-Few); Squamous Epithelial Cell,Urine Many per lpf (None-Few)
[2019-03-22 20:29] LABS: Hyaline Casts,Urine Few per lpf (None-Few)
[2019-03-22 20:30] LABS: Calcium Oxalate Crystals,Urine Present
[2019-03-22] MEDS ORDERED: *HR* Heparin 5,000 UNIT/ML VIAL IVP PRN ×2 (21:13)
[2019-03-22] MEDS ORDERED: *HR* Heparin 5,000 UNIT/ML VIAL IVP ONE (21:13)
[2019-03-22] MEDS ORDERED: *HR* FentaNYL (PF) 100 MCG/2 ML VIAL IVP ONE (21:13)
[2019-03-22] MEDS: Heparin 25,000 UNIT/250 ML D5W 25,000 UNIT/250 ML IV.SOLN IVC SCH (21:30)
[2019-03-22 21:42] LABS: Hematocrit 37.5 % (35.3-44.9); Hemoglobin 11.6 g/dL (11.5-15.4); Mean Corpuscular HGB Conc 30.9 g/dL (31.6-35.5); Mean Corpuscular Hemoglobin 29.4 pg (28.0-33.3); Mean Corpuscular Volume 94.9 fL (83.0-100.0); Mean Platelet Volume 9.6 fL (9.4-12.4); Platelet Count 309 K/mcL (140-400); Red Blood Count 3.95 M/mcL (3.82-4.97); Red Cell Distribution Width 12.4 % (11.5-14.5); White Blood Count 9.7 K/mcL (4.3-11.1)
[2019-03-22 21:51] LABS: Heparin anti-factor XA UFH 0.03 IU/mL (0.30-0.70); Prothrombin Time 11.5 Seconds (9.4-12.1)
[2019-03-22 21:55] LABS: Activated Partial Thrombo Time 28.5 Seconds (26.0-36.0)
[2019-03-22] MEDS ORDERED: *HR* OxyCODONE/APAP 7.5/325 TABLET PO STA (23:07)
[2019-03-22] MEDS ORDERED: Morphine Sulfate 2 MG/ML SYRINGE IVP STA (23:09)
[2019-03-23] MEDS ORDERED: Naloxone 0.4 MG/ML INJ IVP PRN (03:53)
[2019-03-23] MEDS ORDERED: 0.9 % Sodium Chloride 1,000 ML IVC ONE (03:55)
[2019-03-23] MEDS ORDERED: Acetaminophen 325 MG TABLET PO PRN (03:56)
[2019-03-23 06:21] LABS: Mean Corpuscular HGB Conc 30.8 g/dL (31.6-35.5); Mean Corpuscular Hemoglobin 28.8 pg (28.0-33.3); Mean Corpuscular Volume 93.8 fL (83.0-100.0); Mean Platelet Volume 10.5 fL (9.4-12.4); Platelet Count 335 K/mcL (140-400); Red Blood Count 4.16 M/mcL (3.82-4.97); Red Cell Distribution Width 12.2 % (11.5-14.5); White Blood Count 10.2 K/mcL (4.3-11.1)
[2019-03-23 06:39] LABS: Calcium 8.9 mg/dL (8.6-10.3); Troponin I 0.43 ng/mL (< 0.04)
[2019-03-23] MEDS: Aspirin 81 MG TAB.CHEW PO SCH (12:51)
[2019-03-23] MEDS ORDERED: 0.9 % Sodium Chloride 500 ML ONE (14:27)
[2019-03-23] MEDS: Gabapentin 300 MG CAPSULE PO SCH ×2 (14:28→20:21)
[2019-03-23] MEDS: Heparin 25,000 UNIT/250 ML D5W 25,000 UNIT/250 ML IV.SOLN IVC SCH (21:18)
[2019-03-24 04:59] LABS: BUN/Creatinine Ratio 21 (6-26); Blood Urea Nitrogen 11 mg/dL (6-20); Calcium 9.5 mg/dL (8.6-10.3); Carbon Dioxide 22 mEq/L (23-29); Chloride 110 mEq/L (98-107); Glucose 125 mg/dL (70-105); Osmolality,Calculated 293 (280-300); Potassium 4.8 mEq/L (3.5-5.1); Sodium 141 mEq/L (136-145); eGFR For African Americans > 60 (> 60); eGFR For Non-African Americans > 60 (> 60)
[2019-03-24] MEDS: Gabapentin 300 MG CAPSULE PO SCH ×3 (08:20→21:43)
[2019-03-24] MEDS: Loratadine 10 MG TABLET PO SCH (08:22)
[2019-03-24] MEDS: Aspirin 81 MG TAB.CHEW PO SCH (08:22)
[2019-03-24] MEDS ORDERED: Nitroglycerin 1,000 MCG/10 ML VIAL IV ONE (09:57)
[2019-03-24] MEDS ORDERED: 0.9 % Sodium Chloride 1,000 ML ONE ×3 (09:57→17:05)
[2019-03-24] MEDS ORDERED: *HR* Heparin 10,000 UNIT/10 ML VIAL ONE (09:57)
[2019-03-24] MEDS ORDERED: ISOVUE-370 200 ML INFUS..BTL ONE (09:57)
[2019-03-24] MEDS ORDERED: Heparin 1,000 UNITS/500 mL 500 ML ONE (09:57)
[2019-03-24] MEDS ORDERED: Verapamil 5 MG/2 ML VIAL ONE (10:02)
[2019-03-24] MEDS ORDERED: *HR* Midazolam HCl 2 MG/2 ML VIAL ONE (10:07)
[2019-03-24] MEDS: Metoprolol XL (24 HR) Succ 50 MG TAB.ER.24H PO SCH (11:28)
[2019-03-24] MEDS ORDERED: niCARdipine 20 MG/200 ML MLS IVC SCH (13:00)
[2019-03-24] MEDS ORDERED: tiZANidine 4 MG TABLET PO SCH (15:00)
[2019-03-24] MEDS ORDERED: 0.9 % Sodium Chloride 1,000 ML IVC ONE (15:22)
[2019-03-24] MEDS ORDERED: 0.9 % Sodium Chloride 500 ML IVC PRN (16:07)
[2019-03-24] MEDS: Norepinephrine 4 MG in D5% in Water 250 ML IVC SCH (19:33)
[2019-03-25] MEDS ORDERED: *HR* LORazepam 2 MG/ML VIAL IVP ONE ×2 (01:41→23:55)
[2019-03-25 04:28] LABS: Basophils % 0.5 %; Eosinophils # 0.1 K/mcL (0.0-0.6); Eosinophils % 2.5 %; Hematocrit 37.1 % (35.3-44.9); Hemoglobin 11.8 g/dL (11.5-15.4); Immature Granulocytes % 0.2 % (0-4); Lymphocytes # 1.8 K/mcL (0.6-4.6); Lymphocytes % 32.1 %; Mean Corpuscular HGB Conc 31.8 g/dL (31.6-35.5); Mean Corpuscular Hemoglobin 28.4 pg (28.0-33.3); Mean Corpuscular Volume 89.4 fL (83.0-100.0); Mean Platelet Volume 9.7 fL (9.4-12.4); Monocytes # 0.5 K/mcL (0.0-1.3); Monocytes % 9.2 %; Neutrophils # 3.1 K/mcL (1.6-8.9); Platelet Count 293 K/mcL (140-400); Red Blood Count 4.15 M/mcL (3.82-4.97); Red Cell Distribution Width 11.9 % (11.5-14.5); Segmented Neutrophils % 55.5 %; White Blood Count 5.6 K/mcL (4.3-11.1)
[2019-03-25 04:39] LABS: BUN/Creatinine Ratio 17 (6-26); Blood Urea Nitrogen 9 mg/dL (6-20); Calcium 8.8 mg/dL (8.6-10.3); Carbon Dioxide 25 mEq/L (23-29); Chloride 108 mEq/L (98-107); Glucose 107 mg/dL (70-105); Osmolality,Calculated 287 (280-300); Sodium 139 mEq/L (136-145); eGFR For African Americans > 60 (> 60); eGFR For Non-African Americans > 60 (> 60)
[2019-03-25 04:41] LABS: Troponin I 0.22 ng/mL (< 0.04)
[2019-03-25] MEDS: Aspirin 81 MG TAB.CHEW PO SCH (07:52)
[2019-03-25] MEDS: Gabapentin 300 MG CAPSULE PO SCH ×3 (07:52→19:34)
[2019-03-25] MEDS: Loratadine 10 MG TABLET PO SCH (07:52)
[2019-03-25] MEDS: Metoprolol XL (24 HR) Succ 50 MG TAB.ER.24H PO SCH (07:53)
[2019-03-25] MEDS ORDERED: *HR* Labetalol 20 MG/4 ML SYRINGE IVP ONE ×2 (10:22→11:13)
[2019-03-25] MEDS ORDERED: *HR* Labetalol 20 MG/4 ML SYRINGE IVP PRN (14:18)
[2019-03-25] MEDS: Norepinephrine 4 MG in D5% in Water 250 ML IVC SCH (18:43)
[2019-03-25] MEDS: *HR* Heparin 5,000 UNIT/ML VIAL SQ SCH (21:00)
[2019-03-26] MEDS: *HR* Heparin 5,000 UNIT/ML VIAL SQ SCH ×3 (05:58→20:55)
[2019-03-26 06:22] LABS: BUN/Creatinine Ratio 18 (6-26); Blood Urea Nitrogen 10 mg/dL (6-20); Calcium 9.7 mg/dL (8.6-10.3); Carbon Dioxide 27 mEq/L (23-29); Chloride 104 mEq/L (98-107); Glucose 143 mg/dL (70-105); Osmolality,Calculated 294 (280-300); Potassium 3.7 mEq/L (3.5-5.1); Sodium 141 mEq/L (136-145); Troponin I 0.15 ng/mL (< 0.04); eGFR For African Americans > 60 (> 60); eGFR For Non-African Americans > 60 (> 60)
[2019-03-26] MEDS: Lisinopril 20 MG TABLET PO SCH (08:12)
[2019-03-26] MEDS: Loratadine 10 MG TABLET PO SCH (08:13)
[2019-03-26] MEDS: Aspirin 81 MG TAB.CHEW PO SCH (08:13)
[2019-03-26] MEDS: Metoprolol XL (24 HR) Succ 50 MG TAB.ER.24H PO SCH (08:13)
[2019-03-26] MEDS: Gabapentin 300 MG CAPSULE PO SCH ×3 (08:13→20:55)
[2019-03-26] MEDS: niCARdipine 20 MG/200 ML MLS IVC SCH ×3 (10:44→19:32)
[2019-03-26] MEDS ORDERED: Isovue-370 500 ML BOTTLE IVP ONE (10:49)
[2019-03-26] MEDS ORDERED: Metoprolol XL (24 HR) Succ 50 MG TAB.ER.24H PO SCH (14:24)
[2019-03-26] MEDS ORDERED: Metoprolol XL (24 HR) Succ 25 MG TAB.ER.24H PO ONE (15:00)
[2019-03-27] MEDS: niCARdipine 20 MG/200 ML MLS IVC SCH ×7 (00:34→21:51)
[2019-03-27 04:23] LABS: Basophils # 0.1 K/mcL (0.0-0.2); Basophils % 0.7 %; Eosinophils # 0.2 K/mcL (0.0-0.6); Eosinophils % 2.7 %; Hematocrit 44.1 % (35.3-44.9); Immature Granulocytes % 0.4 % (0-4); Mean Corpuscular HGB Conc 31.7 g/dL (31.6-35.5); Mean Corpuscular Hemoglobin 28.9 pg (28.0-33.3); Mean Corpuscular Volume 90.9 fL (83.0-100.0); Monocytes # 0.6 K/mcL (0.0-1.3); Monocytes % 8.6 %; Neutrophils # 3.4 K/mcL (1.6-8.9); Platelet Count 412 K/mcL (140-400); Red Blood Count 4.85 M/mcL (3.82-4.97); Segmented Neutrophils % 46.6 %; White Blood Count 7.3 K/mcL (4.3-11.1)
[2019-03-27 04:43] LABS: BUN/Creatinine Ratio 25 (6-26); Blood Urea Nitrogen 16 mg/dL (6-20); Calcium 10.5 mg/dL (8.6-10.3); Carbon Dioxide 27 mEq/L (23-29); Chloride 100 mEq/L (98-107); Glucose 244 mg/dL (70-105); Osmolality,Calculated 295 (280-300); Potassium 3.8 mEq/L (3.5-5.1); Sodium 138 mEq/L (136-145); eGFR For African Americans > 60 (> 60); eGFR For Non-African Americans > 60 (> 60)
[2019-03-27] MEDS: *HR* Heparin 5,000 UNIT/ML VIAL SQ SCH ×3 (06:33→21:50)
[2019-03-27] MEDS: Lisinopril 20 MG TABLET PO SCH (08:50)
[2019-03-27] MEDS: Gabapentin 300 MG CAPSULE PO SCH ×3 (08:51→20:21)
[2019-03-27] MEDS: Loratadine 10 MG TABLET PO SCH (08:51)
[2019-03-27] MEDS: Aspirin 81 MG TAB.CHEW PO SCH (08:51)
[2019-03-27] MEDS: Metoprolol XL (24 HR) Succ 50 MG TAB.ER.24H PO SCH (08:51)
[2019-03-27 14:45] LABS: Total Volume 24 Hour,Urine 2.59 Liters (0.60-1.60)
[2019-03-27] MEDS: Ringers Solution, Lactated 1,000 ML IVC SCH (16:15)
[2019-03-28] MEDS: Ringers Solution, Lactated 1,000 ML IVC SCH ×2 (02:56→08:33)
[2019-03-28] MEDS: niCARdipine 20 MG/200 ML MLS IVC SCH ×2 (04:34→08:32)
[2019-03-28] MEDS: *HR* Heparin 5,000 UNIT/ML VIAL SQ SCH (04:35)
[2019-03-28] MEDS: Aspirin 81 MG TAB.CHEW PO SCH (08:20)
[2019-03-28] MEDS: Loratadine 10 MG TABLET PO SCH (08:20)
[2019-03-28] MEDS: Metoprolol XL (24 HR) Succ 50 MG TAB.ER.24H PO SCH (08:21)
[2019-03-28] MEDS: Gabapentin 300 MG CAPSULE PO SCH (08:21)
[2019-03-28] MEDS: Lisinopril 20 MG TABLET PO SCH (08:21)
[2019-03-28 11:26] VITALS: BP 116/90
[2019-03-29 09:45] LABS: ANA IgG by ELISA NONE DETECTED (None Detected)
[2019-04-01 11:06] LABS: Urine Collection Volume 2593 mL
[2019-04-01 15:21] LABS: Urine Creatinine mg/d 1089 mg/d (700-1600)
[2019-04-06 11:19] LABS: Antiphospholipid IgG High Spec 6 GPL (0-14); Antiphospholipid IgM High Spec 11 MPL (0-14)
== END 2019-03-28 13:05 | disposition home or self-care (01) | DRG 190 ==
LOC: EMEROOARM 18:29 → 2ANU 18:29 → SUATTDRO 22:33 → 2ANU 23:40 → 2NNU 03-24 17:08 → ICNU 03-24 17:50 → 2NNU 03-26 13:57
PROVIDERS: ADMIT Internal Medicine; ATTEND Internal Medicine

== ENCOUNTER 2019-05-03 21:46 | Observation (INO) ==
[2019-05-03] MEDS ORDERED: 0.9 % Sodium Chloride 1,000 ML IVC ONE (21:57)
--- NOTE | 2019-05-03 22:10 | Emergency Department Note ---
Disposition Clinical Impression: Cellulitis of hand, Systemic inflammatory response syndrome Infected cat bite Qualifiers: Encounter type: initial encounter Qualified Code(s): W55.01XA - Bitten by cat, initial encounter Sepsis Qualifiers: Sepsis type: sepsis due to unspecified organism Sepsis acute organ dysfunction status: unspecified Qualified Code(s): A41.9 - Sepsis, unspecified organism Disposition: Admitted As Inpatient Condition: Fair Time of Disposition: 01:45 General Adult HPI - General Chief complaint: ED Wound/Laceration Stated complaint: BITTEN BY A CAT YESTERDAY RIGHT HAND Time Seen by Provider: 05/03/19 21:56 Source: patient Mode of arrival: private vehicle Limitations: no limitations Nursing Notes Reviewed: Yes Vital Signs Reviewed: Yes - History of Present Illness HPI Narrative: Patient is a 38 year old female right hand dominant with PMHx of hypertension, depression, presenting with cat bite and scratch since yesterday. She states at midnight she was giving her cat a bath and was bit and scratched by the cat around midnight on the right hand between the thumb and index finger. Since then, pain is increasing. There is increased swelling and redness progressing up her arm. She has done epson salt baths, ice, percocet. She felt warm and had chills at home. She complains of nausea. No vomiting, chest pain, shortness of breath, weakness, headaches, numbness. Cat is up to date on rabies vaccination. Patient does not know when her last tetanus was updated. Pain Scale: 9 - Related Data Home Medications Medication Instructions Recorded Confirmed Duloxetine HCl [Cymbalta] 60 mg PO DAILY 03/19/18 05/04/19 Multivitamin [One Daily 1 tab PO DAILY 03/19/18 05/04/19 Multivitamin] Calcium Citrate 1,200 mg PO DAILY 03/22/19 05/04/19 Gabapentin [Neurontin] 300 - 600 mg PO TID 03/22/19 05/04/19 Lisinopril [Zestril] 10 mg PO BID 03/22/19 05/04/19 Loratadine [Allergy Relief] 10 mg PO DAILY 03/22/19 05/04/19 OxyCODONE/APAP 7.5/325 [Percocet 1 tab PO TID PRN 03/22/19 05/04/19 7.5/325 MG] Tizanidine HCl 4 - 12 mg PO TID PRN 04/03/19 05/04/19 ARIPiprazole [Abilify] 2 mg PO HS 05/04/19 05/04/19 Metoprolol XL (24 HR) Succ [Toprol 50 mg PO DAILY 05/04/19 05/04/19 Xl] Prazosin [Minipress] 1 mg PO BID 05/04/19 05/04/19 Previous Rx's Medication Instructions Recorded Atorvastatin [Lipitor] 40 mg PO HS tablet 03/22/18 Allergies Allergy/AdvReac Type Severity Reaction Status Date / Time aspirin [ASA] AdvReac See Verified 03/22/19 22:47 Comments NSAIDS (Non-Steroidal AdvReac See Verified 03/22/19 22:47 Anti-Inflamma Comments Tape Allergy Hives Uncoded 03/22/19 22:47 All systems ED: reviewed and negative except as stated. Review of Systems: As Per HPI Constitutional: Reports: chills. Denies: fever Cardiovascular: Denies: chest pain, palpitations Respiratory: Denies: cough, dyspnea Gastrointestinal: Reports: nausea. Denies: abdominal pain, vomiting, diarrhea Integumentary: Reports: abrasion, lesions Neurological: Denies: headache, weakness, numbness Past Medical History - Past Medical History Attestation: Yes The following information was validated with the patient. Source: patient Medical history: Reports: fibromyalgia, hyperlipidemia, hypertension Surgical history: Reports: non-contributory Psychiatric history: Reports: anxiety, bipolar, depression - Social History Smoking Status: Never smoker Smokeless Tobacco Status: No Alcohol use: Reports: rarely Drug use: Reports: none Physical Exam - General Limitations: no limitations General appearance: alert, in no apparent distress - Head Head exam: atraumatic, normocephalic - Eye Eye exam: Present: normal appearance, EOMI - ENT ENT exam: normal exam, normal oropharynx - Neck Neck exam: Present: normal inspection, trachea midline - Chest Chest inspection: Present: normal inspection, symmetric chest wall rise - Respiratory Respiratory exam: Present: normal lung sounds bilaterally. Absent: respiratory distress, wheezes - Cardiovascular Cardiovascular exam: Present: normal rhythm, tachycardia, normal heart sounds - Abdominal Exam Abdominal exam: Present: soft, Non-Tender. Absent: distention - Extremities Exam Extremities exam: Present: normal capillary refill, other (Significant swelling and erythema of the right hand. There is a small puncture wound on the dorsal proximal aspect of the index finger as well as a puncture wound on the plantar portion of her proximal index finger. The distal fingertips are cool and white with diminished capillary refill. Bilateral radial pulses are equal. Swelling and erythema of the hand extends past the right wrist. Decreased range of motion secondary to pain and swelling. Worsening pain and tenderness of the index finger. Able to do some flexion and extension, abduction and adduction however is limited due to pain and swelling. Unable to do opposition of the thumb to all fingers. Compartments are soft.). Absent: pedal edema, calf tenderness - Neurological Exam Neurological exam: Present: alert, oriented X3 - Psychiatric Psychiatric exam: Present: normal affect, normal mood - Skin Skin exam: Present: warm, dry Course Vital Signs Temperature 100.1 F H 05/03/19 21:48 Pulse Rate 105 05/03/19 21:48 Respiratory Rate 18 05/03/19 21:48 Blood Pressure 171/127 05/03/19 21:48 O2 Sat by Pulse Oximetry 100 05/03/19 21:48 Temperature 100.1 F H 05/03/19 21:48 Pulse Rate 102 05/04/19 01:31 Respiratory Rate 16 05/04/19 01:01 Blood Pressure 193/126 05/04/19 01:31 O2 Sat by Pulse Oximetry 100 05/04/19 01:31 Oxygen Delivery Oxygen Delivery Room Air Medical Decision Making - [facility] Narrative Medical decision making narrative: Will obtain septic workup as patient is febrile, tachycardic. 1L IVF bolus is ordered. Concern for capnocytophaga given the progression of infection, sepsis, will start clindamycin and ciprofloxacin. She has significant amount of swelling and erythema, decreased range of motion secondary to pain and swelling. She still has capillary refill of the distal fingertips however it is diminished. Compartments are still soft. Low clinical suspicion of compartment syndrome. Do not suspect flexor tenosinovitis, We will obtain CT with IV contr ast. Tdap updated. Will give pain and nausea medication. Cat is updated on rabies vaccination. 00:45 White blood count within normal limits. Lactate is normal. CT result shows soft tissue swelling and subcutaneous edema with no focal drainable fluid collection or evidence of osteomyelitis. Hospitalist paged for admission. Patient has been hypertensive at home and is hypertensive here with a g eneralized pounding headache, no vision changes, photophobia, weakness, chest pain, shortness of breath. She states this has been happening quite often at home. Second liter of IVFs ordered as she is still tachycardic. 01:40 Patient still hypertensive despite lopressor. Will give ativan as patient anxious as well. Disucssed with hospitaist, Dr. Hickey, who accepts admission. - Medical Records Medical records reviewed: Yes I reviewed the patient's medical records. - Lab Data Lab results reviewed: Yes I reviewed the patient's lab results. Result diagrams: 05/04/19 06:44 05/03/19 22:21 Lab Results 05/03/19 05/03/19 05/03/19 Range/Units 22:21 22:21 22:21 WBC 8.9 (4.3-11.1) K/mcL RBC 4.83 (3.82-4.97) M/mcL Hgb 13.8 (11.5-15.4) g/dL Hct 42.0 (35.3-44.9) % MCV 87.0 (83.0-100.0) fL MCH 28.6 (28.0-33.3) pg MCHC 32.9 (31.6-35.5) g/dL RDW 12.0 (11.5-14.5) % Plt Count 342 (140-400) K/mcL MPV 9.6 (9.4-12.4) fL Immature Gran % 0.1 (0-4) % Seg Neutrophils % 70.4 % Lymphocytes % 23.5 % Monocytes % 4.5 % Eosinophils % 1.1 % Basophils % 0.4 % Neutrophils # 6.3 (1.6-8.9) K/mcL Lymphocytes # 2.1 (0.6-4.6) K/mcL Monocytes # 0.4 (0.0-1.3) K/mcL Eosinophils # 0.1 (0.0-0.6) K/mcL Basophils # 0.0 (0.0-0.2) K/mcL Sodium 141 (136-145) mEq/L Potassium 3.7 (3.5-5.1) mEq/L Chloride 104 (98-107) mEq/L Carbon Dioxide 26 (23-29) mEq/L BUN 8 (6-20) mg/dL Creatinine 0.71 (0.60-1.20) mg/dL Est GFR ( Amer) > 60 (> 60) Est GFR (Non-Af Amer) > 60 (> 60) BUN/Creatinine Ratio 11 (6-26) Glucose 92 (70-105) mg/dL Calculated Osmolality 290 (280-300) Lactic Acid 1.1 (0.5-2.2) mmol/L Calcium 9.7 (8.6-10.3) mg/dL - Radiology Data Radiology results reviewed: Yes I reviewed the patient's radiology results. Hand CT 05/04/19 00:20 IMPRESSION: Soft tissue swelling and subcutaneous edema. No focal drainable fluid collection. No evidence of osteomyelitis. D/ / Dylan Tapia MD / Dylan Tapia MD Interpreting Provider: Dylan Tapia MD Attestation Statement - Attestation Attestation: I have seen this patient with the resident physician, I have personally evalua pilo this patient. I had reviewed the chart and document dictation by the resident physician and aM in agreement with the information documented by the resident physician. Please see documentation by the resident physician for complete chart including past medical history, family medical history, review of systems, current history and physical and laboratory and imaging studies. I was present for all procedures, provided direct supervision for all procedures, was present for the entirety of all procedures and provided direct guidance during the procedures. Please see documentation by the resident physician for any procedures performed. I have reviewed all interpretations of EKGs, and reviewed all EKGs performed on patient's as well. I have also reviewed reports of imaging as provided by radiology.
[2019-05-03] MEDS ORDERED: *HR* FentaNYL (PF) 100 MCG/2 ML VIAL IVP ONE (22:13)
[2019-05-03] MEDS ORDERED: Ondansetron 4 MG/2 ML VIAL IVP ONE (22:13)
[2019-05-03] MEDS ORDERED: Clindamycin 600 MG/50 ML 600 MG/50 ML IV.SOLN IVPB ONE (22:19)
[2019-05-03] MEDS ORDERED: Isovue-370 500 ML BOTTLE IVP ONE (22:25)
[2019-05-03 22:39] LABS: Basophils % 0.4 %; Eosinophils # 0.1 K/mcL (0.0-0.6); Eosinophils % 1.1 %; Hemoglobin 13.8 g/dL (11.5-15.4); Immature Granulocytes % 0.1 % (0-4); Lymphocytes # 2.1 K/mcL (0.6-4.6); Lymphocytes % 23.5 %; Mean Corpuscular HGB Conc 32.9 g/dL (31.6-35.5); Mean Corpuscular Hemoglobin 28.6 pg (28.0-33.3); Mean Platelet Volume 9.6 fL (9.4-12.4); Monocytes # 0.4 K/mcL (0.0-1.3); Monocytes % 4.5 %; Neutrophils # 6.3 K/mcL (1.6-8.9); Platelet Count 342 K/mcL (140-400); Red Blood Count 4.83 M/mcL (3.82-4.97); Segmented Neutrophils % 70.4 %; White Blood Count 8.9 K/mcL (4.3-11.1)
[2019-05-03 22:57] LABS: BUN/Creatinine Ratio 11 (6-26); Blood Urea Nitrogen 8 mg/dL (6-20); Calcium 9.7 mg/dL (8.6-10.3); Carbon Dioxide 26 mEq/L (23-29); Chloride 104 mEq/L (98-107); Glucose 92 mg/dL (70-105); Osmolality,Calculated 290 (280-300); Potassium 3.7 mEq/L (3.5-5.1); Sodium 141 mEq/L (136-145); eGFR For African Americans > 60 (> 60); eGFR For Non-African Americans > 60 (> 60)
[2019-05-03] MEDS ORDERED: *HR* HYDROmorphone (PF) 1 MG/ML SYRINGE IVP ONE (23:25)
[2019-05-04] MEDS ORDERED: Tdap (Boostrix) Vaccine 0.5 ML SYRINGE IM ONE (00:21)
--- NOTE | 2019-05-04 00:24 | Emergency Department Note ---
Disposition Clinical Impression: Infected cat bite, Cellulitis of hand, Systemic inflammatory response syndrome Disposition: Admitted As Inpatient Condition: Fair Forms: ED Satisfaction Letter Time of Disposition: 00:24 General Adult HPI - General Chief complaint: ED Wound/Laceration Stated complaint: BITTEN BY A CAT YESTERDAY RIGHT HAND Time Seen by Provider: 05/03/19 21:56 Source: patient Mode of arrival: private vehicle Limitations: no limitations Nursing Notes Reviewed: Yes Vital Signs Reviewed: Yes - History of Present Illness Pain Scale: 9 - Related Data Home Medications Medication Instructions Recorded Confirmed Duloxetine HCl [Cymbalta] 60 mg PO DAILY 03/19/18 05/04/19 Multivitamin [One Daily 1 tab PO DAILY 03/19/18 05/04/19 Multivitamin] Calcium Citrate 1,200 mg PO DAILY 03/22/19 05/04/19 Gabapentin [Neurontin] 300 - 600 mg PO TID 03/22/19 05/04/19 Lisinopril [Zestril] 10 mg PO QPM 03/22/19 05/04/19 Loratadine [Allergy Relief] 10 mg PO DAILY 03/22/19 05/04/19 OxyCODONE/APAP 7.5/325 [Percocet 1 tab PO TID PRN 03/22/19 05/04/19 7.5/325 MG] Tizanidine HCl 12 mg PO TID PRN 04/03/19 05/04/19 ARIPiprazole [Abilify] 2 mg PO HS 05/04/19 05/04/19 Metoprolol XL (24 HR) Succ [Toprol 50 mg PO DAILY 05/04/19 05/04/19 Xl] Prazosin HCl [Minipress] 2 mg PO BID 05/04/19 05/04/19 Previous Rx's Medication Instructions Recorded Atorvastatin [Lipitor] 40 mg PO HS tablet 03/22/18 Allergies Allergy/AdvReac Type Severity Reaction Status Date / Time aspirin [ASA] AdvReac See Verified 03/22/19 22:47 Comments NSAIDS (Non-Steroidal AdvReac See Verified 03/22/19 22:47 Anti-Inflamma Comments Tape Allergy Hives Uncoded 03/22/19 22:47 Constitutional: Reports: chills. Denies: fever Cardiovascular: Denies: chest pain, palpitations Respiratory: Denies: cough, dyspnea Gastrointestinal: Reports: nausea. Denies: abdominal pain, vomiting, diarrhea Integumentary: Reports: abrasion, lesions Neurological: Denies: headache, weakness, numbness Past Medical History - Past Medical History Medical history: Reports: fibromyalgia, hyperlipidemia, hypertension Surgical history: Reports: non-contributory Psychiatric history: Reports: anxiety, bipolar, depression - Social History Smoking Status: Never smoker Smokeless Tobacco Status: No Alcohol use: Reports: rarely Drug use: Reports: none Physical Exam - General Limitations: no limitations General appearance: alert, in no apparent distress Course Vital Signs Temperature 100.1 F H 05/03/19 21:48 Pulse Rate 105 05/03/19 21:48 Respiratory Rate 18 05/03/19 21:48 Blood Pressure 171/127 05/03/19 21:48 O2 Sat by Pulse Oximetry 100 05/03/19 21:48 Temperature 100.1 F H 05/03/19 21:48 Pulse Rate 101 05/04/19 00:02 Respiratory Rate 15 05/04/19 00:02 Blood Pressure 194/119 05/04/19 00:02 O2 Sat by Pulse Oximetry 99 05/04/19 00:02 Oxygen Delivery Oxygen Delivery Room Air Medical Decision Making - MDM Narrative Medical decision making narrative: I have seen this patient with the resident physician, I have personally evaluated this patient. I had reviewed the chart and document dictation by the resident physician and aM in agreement with the information documented by the resident physician. Please see documentation by the resident physician for complete chart including past medical history, family medical history, review of systems, current history and physical and laboratory and imaging studies. I was present for all procedures, provided direct supervision for all procedur es, was present for the entirety of all procedures and provided direct guidance during the procedures. Please see documentation by the resident physician for any procedures performed. I have reviewed all interpretations of EKGs, and reviewed all EKGs performed on patient's as well. I have also reviewed reports of imaging as provided by radiology. Patient presented emergency Department chief complaint of progressively increasing right hand pain swelling and redness after being bitten by her cat last night. She states that she was bitten in the webspace of her thumb and forefinger and has developed progressively increasing pain on the dorsum of her hand and increasing swelling and redness. She reports that her cat's shots are all up-to-date. On physical examination she is uncomfortable in appearance with significant erythema and swelling of the dorsum of her hand extending approximately 3-4 cm proximal to the wrist joint, however with range of motion of the wrist there is no significant pain. Patient holds her hand in neutral position in the typical soda can position, with complete extension of her finger she gets significant pain in the dorsum of her hand with complete flexion of her fingers passively she does complain again of pain in the dorsum of her hand she does not get any pain within the palm of her hand and has no evidence of flexor tenosynovitis, cannot rule out some extensor tenosynovitis of the second third and fourth digits. There is significant erythema noted, there is some prominent edema of the right hand. There is no associated lymphangitis or enlarged lymph nodes no palpable crepitus. Basic laboratory studies were ordered she did meet criteria for systemic inflammatory response syndrome upon arrival. Secondary to this being related to a cat bite, she was started on IV Cipro and IV clindamycin to cover for pasteurella as well as organism such as capnocytophaga. Standard organism coverage for a cat bite. Patient underwent a CT scan to evaluate for any evidence of underlying abscess, or gas producing organisms. She was also given pain medication she was also given a tetanus shot. Patient will require admission to the hospital consultation from hand surgery. - Lab Data Result diagrams: 05/03/19 22:21 05/03/19 22:21 Lab Results 05/03/19 05/03/19 05/03/19 Range/Units 22:21 22:21 22:21 WBC 8.9 (4.3-11.1) K/mcL RBC 4.83 (3.82-4.97) M/mcL Hgb 13.8 (11.5-15.4) g/dL Hct 42.0 (35.3-44.9) % MCV 87.0 (83.0-100.0) fL MCH 28.6 (28.0-33.3) pg MCHC 32.9 (31.6-35.5) g/dL RDW 12.0 (11.5-14.5) % Plt Count 342 (140-400) K/mcL MPV 9.6 (9.4-12.4) fL Immature Gran % 0.1 (0-4) % Seg Neutrophils % 70.4 % Lymphocytes % 23.5 % Monocytes % 4.5 % Eosinophils % 1.1 % Basophils % 0.4 % Neutrophils # 6.3 (1.6-8.9) K/mcL Lymphocytes # 2.1 (0.6-4.6) K/mcL Monocytes # 0.4 (0.0-1.3) K/mcL Eosinophils # 0.1 (0.0-0.6) K/mcL Basophils # 0.0 (0.0-0.2) K/mcL Sodium 141 (136-145) mEq/L Potassium 3.7 (3.5-5.1) mEq/L Chloride 104 (98-107) mEq/L Carbon Dioxide 26 (23-29) mEq/L BUN 8 (6-20) mg/dL Creatinine 0.71 (0.60-1.20) mg/dL Est GFR ( Amer) > 60 (> 60) Est GFR (Non-Af Amer) > 60 (> 60) BUN/Creatinine Ratio 11 (6-26) Glucose 92 (70-105) mg/dL Calculated Osmolality 290 (280-300) Lactic Acid 1.1 (0.5-2.2) mmol/L Calcium 9.7 (8.6-10.3) mg/dL
[2019-05-04] MEDS ORDERED: 0.9 % Sodium Chloride 1,000 ML IVC ONE ×2 (00:52→05:06)
[2019-05-04] MEDS ORDERED: *HR* Metoprolol 5 MG/5 ML VIAL IVP ONE (00:53)
[2019-05-04] MEDS ORDERED: *HR* LORazepam 2 MG/ML VIAL IVP ONE (01:35)
[2019-05-04] MEDS ORDERED: tiZANidine 4 MG TABLET PO SCH (04:00)
--- NOTE | 2019-05-04 04:52 | Internal Med History&Physical ---
<Carla Bunn - Last Filed: 05/04/19 05:17> Date of Encounter: 05/04/19 Time of Encounter: 04:52 Internal Medicine - H&P: HPI Chief complaint: Cat Bite Admitted From: Emergency Dept Plans for Post Hospital Care: Home History of present illness: Ms. Matthews is a 38 year old female with past medical history of hypertension, hyperlipidemia, fibromyalgia, bariatric surgery who presented to [facility] complaining of a cat bite. Patient reported that yesterday evening around midnight she was giving her cat a bath when it bit her on her right hand. The following day she noticed her right hand start swelling and becoming more painful. Right-hand became more erythematous going to perform. She had pain with moving her fingers and her wrist. Additionally, she started noticing fevers and nausea so she decided to get the ED to be evaluated. She denied chills, chest pain, shortness of breath, abdominal pain, diarrhea. She reports her cat is up-to-date on that shots including rabies vaccination. She has no allergies to antibiotics. She needs updated on her tetanus shot. She denies smoking, drug use. She rarely drinks alcohol. Family history of father having OR. She has a full code. In the ED initial vitals were temperature 100.1F, HR 105, BP 171/127. CBC, BMP, lactic acid were all unremarkable. Right hand CT showing soft tissue swelling and subcutaneous edema. No abscess or evidence of osteomyelitis. -In the ED the patient was given 2L IVF, tetanus shot, ciprofloxacin, clindamycin, fentanyl, Dilaudid, Ativan. Blood cultures were taken. Past Med Surg Social Fam HX - Past Medical History Attestation: Yes The following information was validated with the patient. Source: patient Medical history: fibromyalgia, hyperlipidemia, hypertension Additional medical history: Neck pain Psychiatric history: anxiety, bipolar, depression - Past Surgical History Surgical History: hysterectomy, other, bariatric surgery Additional surgical history: gastric bypass, tonsillectomy - Social History Smoking Status: Never smoker Smokeless Tobacco Status: No Alcohol use: rarely Drug use: none - Family History Mother Living Status: Still Living Age at : 62 Hx Family Cardiac Disorders: Yes (HTN) Hx Family Endocrine Disorder: Yes (DM) Father Living Status: Still Living Age at : 71 Hx Family Cardiac Disorders: Yes (HTN, OR) Hx Family Endocrine Disorder: Yes (DM) Internal Medicine - H&P: Meds Duloxetine HCl [Cymbalta] 60 mg PO DAILY 03/19/18 [History] Multivitamin [One Daily Multivitamin] 1 tab PO DAILY 03/19/18 [History] Atorvastatin [Lipitor] 40 mg PO HS tablet 03/22/18 [Rx] Calcium Citrate 1,200 mg PO DAILY 03/22/19 [History] Gabapentin [Neurontin] 300 - 600 mg PO TID 03/22/19 [History] Lisinopril [Zestril] 10 mg PO QPM 03/22/19 [History] Loratadine [Allergy Relief] 10 mg PO DAILY 03/22/19 [History] OxyCODONE/APAP 7.5/325 [Percocet 7.5/325 MG] 1 tab PO TID PRN 03/22/19 [History] Tizanidine HCl 12 mg PO TID PRN 04/03/19 [History] ARIPiprazole [Abilify] 2 mg PO HS 05/04/19 [History] Metoprolol XL (24 HR) Succ [Toprol Xl] 50 mg PO DAILY 05/04/19 [History] Prazosin HCl [Minipress] 2 mg PO BID 05/04/19 [History] Allergy/AdvReac Type Severity Reaction Status Date / Time aspirin [ASA] AdvReac See Verified 03/22/19 22:47 Comments NSAIDS (Non-Steroidal AdvReac See Verified 03/22/19 22:47 Anti-Inflamma Comments Tape Allergy Hives Uncoded 03/22/19 22:47 All Systems PM: A 10-system review of systems was performed and is negative for pertinent findings except as documented above in the HPI. - Constitutional Constitutional: fever(s), no chills, no malaise - EENT Eyes: no change in vision - Cardiovascular Cardiovascular ROS IM: no chest pain, no palpitations - Respiratory Respiratory: no cough, no dyspnea - Gastrointestinal Gastrointestinal: nausea, no abdominal pain, no diarrhea, no vomiting - Musculoskeletal Musculoskeletal ROS IM: joint swelling, limited range of motion, stiffness - Integumentary Integumentary IM: new lesions (Right hand), sores, no pruritus - Neurological Neurological ROS: no dizziness, no headache(s) - Constitutional Vitals: Temp Pulse Resp BP Pulse Ox 99.1 F 104 16 224/128 96 05/04/19 02:17 05/04/19 02:17 05/04/19 02:17 05/04/19 02:33 05/04/19 02:17 Exam: Gen.: Vitals noted. No acute distress. AAOx3 HEENT: oropharynx clear, Normocephalic, atraumatic Cardiac: RRR, no murmur, +S1/S2 Pulmonary: CTA bilaterally, no wheezes, rales or rhonchi, equal chest expansion Abdomen: soft, nontender, Bowel sounds noted, no guarding MSK: right hand swelling and erythema diffusely with puncture ashish on dorsal and ventral surface between the thumb and first finger. Erythema extends up 1/[address] way up forearm. No crepitation. Extremities: no BLE edema, nontender calf, no cyanosis or clubbing Neuro: A&Ox3, moves all extremities, no focal deficits Psych: Appropriate mood and behavior Internal Med - H&P Results - Labs CBC & Chem 7: 05/03/19 22:21 05/03/19 22:21 Labs: Short CBC 05/03/19 Range/Units 22:21 WBC 8.9 (4.3-11.1) K/mcL Hgb 13.8 (11.5-15.4) g/dL Hct 42.0 (35.3-44.9) % Plt Count 342 (140-400) K/mcL Neutrophils # 6.3 (1.6-8.9) K/mcL BMP 05/03/19 22:21 Sodium 141 Potassium 3.7 Chloride 104 Carbon Dioxide 26 BUN 8 Creatinine 0.71 Glucose 92 Calcium 9.7 - Impressions ITS Impressions Hand CT 05/04/19 00:20 IMPRESSION: Soft tissue swelling and subcutaneous edema. No focal drainable fluid collection. No evidence of osteomyelitis. D/ / Dylan Tapia MD / Dylan Tapia MD Interpreting Provider: Dylan Tapia MD - Assessment and Plan (1) Cellulitis of hand Current Visit: Yes Status: Acute Assessment and plan: Cellulitis of the right hand secondary to cat bite her on her right hand while giving it a bath. This occurred approximately at midnight on 05/02. Throughout the progression of the day she had increased swelling, erythema, pain, decreased range of motion. Erythema was up to 1/4 up forearm. In the ED patient was given 2L IVF, clindamycin, ciprofloxacin. -Temperature 100 .1F, HR 104 -WBC 8.9, lactic acid 1.1 -Right hand CT showing soft tissue swelling and subcutaneous edema. No abscess or evidence of osteomyelitis. -right hand swelling and erythema diffusely with puncture ashish on dorsal and ventral surface between the thumb and first finger. Erythema extends up 1/[address] way up forearm. No crepitation. plan: -continue IV unasyn as the patient has significant erythema, decreased range of motion, swelling of right hand. -Continue oxycodone PRN pain -acetaminophen ordered -continue to monitor hand erythema (2) Infected cat bite Current Visit: Yes Status: Acute Assessment and plan: Yesterday around midnight patient was giving her cat a bath when it bit her on her right hand. Patient reports cat is up-to-date on vaccinations including rabies vaccination. -Antibiotics as above -tetanus shot given in ED Qualifiers: Encounter type: initial encounter Qualified Code(s): W55.01XA - Bitten by cat, initial encounter (3) Hypotension Current Visit: Yes Status: Acute Assessment and plan: Initial presentation to the ED the patient had hypertension however my examination the patient she was hypotensive with a BP of 89/58. This is after the patient had received prazosin, oxycodone, Zanaflex. The patient was nodding off during our conversation due to the pain medication and muscle relaxor. Suspected that the hypertension is the culmination of the medications being given at the same time. Do not highly suspect sepsis at this time as she is afebrile, WBC WNL, lactic acid WNL. -Will hold all blood pressure medications -will give IV fluids -will continue to closely monitor blood pressure Qualifiers: Hypotension type: hypotension due to drug Qualified Code(s): I95.2 - Hypotension due to drugs (4) Hypertension Current Visit: No Status: Acute Assessment and plan: Patient has known hypertension taking prazosin, Toprol, lisinopril. -Will hold his medications as patient has become hypotensive that is likely a combination of her having prazosin, oxycodone, tizanidine at the same time. Qualifiers: Hypertension type: essential hypertension Qualified Code(s): I10 - Essential (primary) hypertension (5) Obesity (BMI 30.0-34.9) Current Visit: No Status: Acute Assessment and plan: Need lifestyle changes (6) DVT prophylaxis Current Visit: No Status: Acute Assessment and plan: Heparin SQ - Time Spent With Patient Total time spent is greater than 50% in coordination of care (as documented) at patient's floor/unit and/or counseling patient: <Karolina Hickey A - Last Filed: 05/04/19 06:56> Date of Encounter: 05/04/19 Internal Medicine - H&P: HPI History of present illness: Ms. Matthews is a 38 year old female All Systems PM: A 10-system review of systems was performed and is negative for pertinent findings except as documented above in the HPI. - Constitutional Vitals: Temp Pulse Resp BP Pulse Ox 99.1 F 104 16 90/64 96 05/04/19 02:17 05/04/19 02:17 05/04/19 02:17 05/04/19 06:30 05/04/19 02:17 Internal Med - H&P Results - Labs CBC & Chem 7: 05/03/19 22:21 05/03/19 22:21 Labs: Short CBC 05/03/19 Range/Units 22:21 WBC 8.9 (4.3-11.1) K/mcL Hgb 13.8 (11.5-15.4) g/dL Hct 42.0 (35.3-44.9) % Plt Count 342 (140-400) K/mcL Neutrophils # 6.3 (1.6-8.9) K/mcL BMP 05/03/19 22:21 Sodium 141 Potassium 3.7 Chloride 104 Carbon Dioxide 26 BUN 8 Creatinine 0.71 Glucose 92 Calcium 9.7 - Impressions ITS Impressions Hand CT 05/04/19 00:20 IMPRESSION: Soft tissue swelling and subcutaneous edema. No focal drainable fluid collection. No evidence of osteomyelitis. D/ / Dylan Tapia MD / Dylan Tapia MD Interpreting Provider: Dylan Tapia MD - Assessment and Plan (1) Cellulitis of hand Current Visit: Yes Status: Acute (2) Infected cat bite Current Visit: Yes Status: Acute Qualifiers: Encounter type: initial encounter Qualified Code(s): W55.01XA - Bitten by cat, initial encounter (3) Hypotension Current Visit: Yes Status: Acute Qualifiers: Hypotension type: hypotension due to drug Qualified Code(s): I95.2 - Hypotension due to drugs (4) Hypertension Current Visit: No Status: Acute Qualifiers: Hypertension type: essential hypertension Qualified Code(s): I10 - Essential (primary) hypertension (5) Obesity (BMI 30.0-34.9) Current Visit: No Status: Acute (6) DVT prophylaxis Current Visit: No Status: Acute - Time Spent With Patient Total time spent is greater than 50% in coordination of care (as documented) at patient's floor/unit and/or counseling patient: - Attending Attestation Patient seen and examined independently, including review of objective data including labs. I agree with plan of care as documented below by the resident with the following comments: [id number] encounter occurred about 5:50 PM. Patient is a 38-year-old female right hand dominant admitted for a well domesticated, rabbies vaccinatted cat bite on her right hand. Patient then developed erythema, edema and progressive tenderness. Tetanus shot was given in the ED. Patient was noted to be febrile with tachycardia. Sepsis work up and cx pending, Transitioned to Unasyn. Patient will need further monitoring and check response. If improved might benefit from switching to oral Augmentin outpatient with close follow-up. Patient was noted hypertensive in the ED however was contributed to mostly pain that was uncontrolled. Patient then was given her blood pressure medication and opiates resulting in significant lowering of BP. Patient was given bolus with improvement of BP.
[2019-05-04] MEDS ORDERED: 0.9 % Sodium Chloride 1,000 ML ONE (05:08)
[2019-05-04] MEDS ORDERED: Naloxone 0.4 MG/ML INJ IVP PRN (05:15)
[2019-05-04] MEDS ORDERED: Acetaminophen 325 MG TABLET PO PRN (05:16)
[2019-05-04] MEDS: *HR* Heparin 5,000 UNIT/ML VIAL SQ SCH ×4 (05:19→23:28)
[2019-05-04] MEDS: Ampicillin/Sulbactam 3,000 MG in 0.9 % Sodium Chloride Mini Bag 100 ML IVPB SCH ×4 (06:08→22:44)
[2019-05-04 07:05] LABS: Hematocrit 31.2 % (35.3-44.9); Mean Corpuscular HGB Conc 32.1 g/dL (31.6-35.5); Mean Corpuscular Hemoglobin 28.6 pg (28.0-33.3); Mean Corpuscular Volume 89.1 fL (83.0-100.0); Mean Platelet Volume 9.8 fL (9.4-12.4); Platelet Count 285 K/mcL (140-400); White Blood Count 9.1 K/mcL (4.3-11.1)
[2019-05-04] MEDS ORDERED: 0.9 % Sodium Chloride 500 ML IV ONE (08:03)
[2019-05-04] MEDS: Multivit/Ca/Min/Fe/FA 1 TAB TABLET PO SCH (08:48)
--- NOTE | 2019-05-04 10:25 | Internal Med Progress Note ---
Hospitalist Progress Note - Encounter Date of Encounter: 05/04/19 Time of Encounter: 10:17 - Subjective Interval History: Ms. Matthwes is a 38 year old female with past medical history of hypertension, hyperlipidemia, fibromyalgia, bariatric surgery who presented to [facility] complaining of a cat bite. Patient reported that yesterday evening around midnight she was giving her cat a bath when it bit her on her right hand. The following day she noticed her right hand start swelling and becoming more painful. Right-hand became more erythematous going to perform. She had pain with moving her fingers and her wrist. Additionally, she started noticing feve rs and nausea so she decided to get the ED to be evaluated. She denied chills, chest pain, shortness of breath, abdominal pain, diarrhea. She reports her cat is up-to-date on that shots including rabies vaccination. In the ED, she had low fever, her BP was high initially and was given home BP and tizanidine, BP then went low as 80-90, she received IV fluid bolus. She also received IV clindamycin and cipro in addition to tetanus shot. Patient was admitted, IV antibiotics changed to Unasyn. Pt seen and examined in the room. She reported pain, swelling and soreness on the right back of the hand, but comparing to yesterday, the swelling and redness not worsened or extended. She has no fever, chills, or night sweats. - Exam Vitals: Temp Pulse Resp BP Pulse Ox 98.1 F 80 17 91/55 93 05/04/19 07:51 05/04/19 07:51 05/04/19 07:51 05/04/19 09:54 05/04/19 07:51 Exam: Gen.: Vitals noted. No acute distress. AAOx3 HEENT: oropharynx clear, Normocephalic, atraumatic Cardiac: RRR, no murmur, +S1/S2 Pulmonary: CTA bilaterally, no wheezes, rales or rhonchi, equal chest expansion Abdomen: soft, nontender, Bowel sounds noted, no guarding MSK: right hand swelling and erythema diffusely with puncture ashish on dorsal and ventral surface between the thumb and first finger. Erythema extends up 1/[address] way up forearm. No crepitation. Extremities: diffuse swelling and redness noted on the dorsal of right hand e xtended to the right wrist. tender on passive range of motion. Neuro: A&Ox3, moves all extremities, no focal deficits Psych: Appropriate mood and behavior - Assessment and Plan (1) Cellulitis of hand Current Visit: Yes Status: Acute Assessment and Plan: 05/03 Cellulitis of the right hand secondary to cat bite her on her right hand while giving it a bath. This occurred approximately at midnight on 05/02. Throughout the progression of the day she had increased swelling, erythema, pain, decreased range of motion. Erythema was up to 1/4 up forearm. In the ED patient was gi ronald 2L IVF, clindamycin, ciprofloxacin. -Temperature 100 .1F, HR 104 -WBC 8.9, lactic acid 1.1 -Right hand CT showing soft tissue swelling and subcutaneous edema. No abscess or evidence of osteomyelitis. -right hand swelling and erythema diffusely with puncture ashish on dorsal and ronald tral surface between the thumb and first finger. Erythema extends up 1/[address] way up forearm. No crepitation. plan: -continue IV unasyn as the patient has significant erythema, decreased range of motion, swelling of right hand. -Continue oxycodone PRN pain -acetaminophen ordered -continue to monitor hand erythema 05/04 Patient afebrile, WBC normal. Redness of right hand stable at wrist, no further extension. Blood culture has no growth until today. Continue IV Unasyn. (2) Infected cat bite Current Visit: Yes Status: Acute Assessment and Plan: Patient reports cat is up-to-date on vaccinations including rabies vaccination. -Antibiotics as above -tetanus shot given in ED (3) Hypotension Current Visit: Yes Status: Acute Assessment and Plan: 05/03 Initial presentation to the ED the patient had hypertension however my examination the patient she was hypotensive with a BP of 89/58. This is after the patient had received prazosin, oxycodone, Zanaflex. The patient was nodding off during our conversation due to the pain medication and muscle relaxor. Suspected that the hypertension is the culmination of the medications being given at the same time. Do not highly suspect sepsis at this time as she is afebrile, WBC WNL, lactic acid WNL. -Will hold all blood pressure medications -will give IV fluids -will continue to closely monitor blood pressure 05/04 Low blood pressure noted in the morning. Patient seems a little bit drowsy, likely secondary to pain medications. She is not toxic appearing. Low BP likely secondary to tizanidine use. Continue IV fluid, continue monitoring BP, hold home blood pressure medicine for now. (4) Hypertension Current Visit: No Status: Acute Assessment and Plan: Home BP meds were on hold due to low blood pressure. We will resume once blood pressure normalized. (5) Obesity (BMI 30.0-34.9) Current Visit: No Status: Acute Assessment and Plan: Need lifestyle changes (6) DVT prophylaxis Current Visit: No Status: Acute Assessment and Plan: Heparin SQ - Time Spent with Patient Total time spent is greater than 50% in coordination of care (as documented) at patient's floor/unit and/or counseling patient: Greater than 35 minutes Plan of Care Discussed with: patient Internal Medicine: Result - Labs CBC & Chem 7: 05/04/19 06:44 05/03/19 22:21 Labs: Short CBC 05/03/19 05/04/19 Range/Units 22:21 06:44 WBC 8.9 9.1 (4.3-11.1) K/mcL Hgb 13.8 10.0 L D (11.5-15.4) g/dL Hct 42.0 31.2 L (35.3-44.9) % Plt Count 342 285 (140-400) K/mcL Neutrophils # 6.3 (1.6-8.9) K/mcL BMP 05/03/19 22:21 Sodium 141 Potassium 3.7 Chloride 104 Carbon Dioxide 26 BUN 8 Creatinine 0.71 Glucose 92 Calcium 9.7 - Impressions Impressions Hand CT 05/04/19 00:20 IMPRESSION: Soft tissue swelling and subcutaneous edema. No focal drainable fluid collection. No evidence of osteomyelitis. D/ / Dylan Tapia MD / Dylan Tapia MD Interpreting Provider: Dylan Tapia MD Consult Discharge Plan - Plan Referrals: Artur Woody MD [Primary Care Provider] - __ (2) Infected cat bite Qualifiers: Encounter type: initial encounter Qualified Code(s): W55.01XA - Bitten by cat, initial encounter (3) Hypotension Qualifiers: Hypotension type: hypotension due to drug Qualified Code(s): I95.2 - Hypotension due to drugs (4) Hypertension Qualifiers: Hypertension type: essential hypertension Qualified Code(s): I10 - Essential (primary) hypertension
[2019-05-04] MEDS: *HR* OxyCODONE/APAP 7.5/325 TABLET PO PRN ×3 (12:30→20:15)
[2019-05-04] MEDS: ARIPiprazole 2 MG TABLET PO SCH (22:43)
[2019-05-05] MEDS: *HR* OxyCODONE/APAP 7.5/325 TABLET PO PRN ×6 (00:44→21:29)
[2019-05-05] MEDS ORDERED: Melatonin 3 MG TABLET PO PRN (01:04)
[2019-05-05 02:37] LABS: Basophils # 0.1 K/mcL (0.0-0.2); Basophils % 0.5 %; Eosinophils # 0.1 K/mcL (0.0-0.6); Eosinophils % 0.9 %; Hematocrit 40.6 % (35.3-44.9); Immature Granulocytes % 0.4 % (0-4); Lymphocytes % 28.3 %; Mean Corpuscular Hemoglobin 28.2 pg (28.0-33.3); Mean Corpuscular Volume 85.3 fL (83.0-100.0); Mean Platelet Volume 10.6 fL (9.4-12.4); Monocytes # 0.8 K/mcL (0.0-1.3); Monocytes % 7.3 %; Neutrophils # 6.5 K/mcL (1.6-8.9); Platelet Count 308 K/mcL (140-400); Red Blood Count 4.76 M/mcL (3.82-4.97); Red Cell Distribution Width 11.9 % (11.5-14.5); Segmented Neutrophils % 62.6 %; White Blood Count 10.4 K/mcL (4.3-11.1)
[2019-05-05 02:45] LABS: Hemoglobin 13.4 g/dL (11.5-15.4)
[2019-05-05 02:46] LABS: BUN/Creatinine Ratio 12 (6-26); Blood Urea Nitrogen 6 mg/dL (6-20); Calcium 9.4 mg/dL (8.6-10.3); Carbon Dioxide 24 mEq/L (23-29); Chloride 108 mEq/L (98-107); Glucose 122 mg/dL (70-105); Osmolality,Calculated 297 (280-300); Potassium 3.7 mEq/L (3.5-5.1); Sodium 144 mEq/L (136-145); eGFR For African Americans > 60 (> 60); eGFR For Non-African Americans > 60 (> 60)
[2019-05-05] MEDS ORDERED: tiZANidine 4 MG TABLET PO ONE (04:23)
[2019-05-05] MEDS: Ampicillin/Sulbactam 3,000 MG in 0.9 % Sodium Chloride Mini Bag 100 ML IVPB SCH ×4 (05:15→23:28)
[2019-05-05] MEDS: Multivit/Ca/Min/Fe/FA 1 TAB TABLET PO SCH (09:25)
--- NOTE | 2019-05-05 09:49 | Internal Med Progress Note ---
Hospitalist Progress Note - Encounter Date of Encounter: 05/05/19 Time of Encounter: 09:47 - Subjective Interval History: Ms. Matthews is a 38 year old female with past medical history of hypertension, hyperlipidemia, fibromyalgia, bariatric surgery who presented to [facility] complaining of a cat bite. Patient reported that yesterday evening around midnight she was giving her cat a bath when it bit her on her right hand. The following day she noticed her right hand start swelling and becoming more painful. Right-hand became more erythematous going to perform. She had pain with moving her fingers and her wrist. Additionally, she started noticing feve rs and nausea so she decided to get the ED to be evaluated. She denied chills, chest pain, shortness of breath, abdominal pain, diarrhea. She reports her cat is up-to-date on that shots including rabies vaccination. In the ED, she had low fever, her BP was high initially and was given home BP and tizanidine, BP then went low as 80-90, she received IV fluid bolus. She also received IV clindamycin and cipro in addition to tetanus shot. Patient was admitted, IV antibiotics changed to Unasyn. Pt seen and examined in the room. Right hand swelling and redness are improving, but still reported pain. She has no fever, chills, or night sweats - Exam Vitals: Temp Pulse Resp BP Pulse Ox 98.2 F 82 17 112/73 96 05/05/19 08:23 05/05/19 08:23 05/05/19 08:23 05/05/19 08:23 05/05/19 08:23 Exam: Gen.: Vitals noted. No acute distress. AAOx3 HEENT: oropharynx clear, Normocephalic, atraumatic Cardiac: RRR, no murmur, +S1/S2 Pulmonary: CTA bilaterally, no wheezes, rales or rhonchi, equal chest expansion Abdomen: soft, nontender, Bowel sounds noted, no guarding MSK: right hand swelling and erythema diffusely with puncture ashish on dorsal and ventral surface between the thumb and first finger. Erythema extends up 1/[address] way up forearm. No crepitation. Extremities: diffuse swelling and redness noted on the dorsal of right hand extended to the right wrist. tender on passive range of motion. Neuro: A&Ox3, moves all extremities, no focal deficits Psych: Appropriate mood and behavior - Assessment and Plan (1) Cellulitis of hand Current Visit: Yes Status: Acute Assessment and Plan: 05/03 Cellulitis of the right hand secondary to cat bite her on her right hand while giving it a bath. This occurred approximately at midnight on 05/02. Throughout the progression of the day she had increased swelling, erythema, pain, decreased range of motion. Erythema was up to 1/4 up forearm. In the ED patient was given 2L IVF, clindamycin, ciprofloxacin. -Temperature 100 .1F, HR 104 -WBC 8.9, lactic acid 1.1 -Right hand CT showing soft tissue swelling and subcutaneous edema. No abscess or evidence of osteomyelitis. -right hand swelling and erythema diffusely with puncture ashish on dorsal and ventral surface between the thumb and first finger. Erythema extends up 1/[address] way up forearm. No crepitation. plan: -continue IV unasyn as the patient has significant erythema, decreased range of motion, swelling of right hand. -Continue oxycodone PRN pain -acetaminophen ordered -continue to monitor hand erythema 05/04 Patient afebrile, WBC normal. Redness of right hand stable at wrist, no further extension. Blood culture has no growth until today. Continue IV Unasyn. 05/05 Right hand cellulitis improving. pt afebrile, wbc normal, continue current treatment with IV abx. Plan to switch to oral abs and dc tomorrow. (2) Infected cat bite Current Visit: Yes Status: Acute Assessment and Plan: Patient reports cat is up-to-date on vaccinations including rabies vaccination. -Antibiotics as above -tetanus shot given in ED (3) Hypotension Current Visit: Yes Status: Acute Assessment and Plan: 05/03 Initial presentation to the ED the patient had hypertension however my exa mination the patient she was hypotensive with a BP of 89/58. This is after the patient had received prazosin, oxycodone, Zanaflex. The patient was nodding off during our conversation due to the pain medication and muscle relaxor. Suspected that the hypertension is the culmination of the medications being given at the same time. Do not highly suspect sepsis at this time as she is afebrile, WBC WNL, lactic acid WNL. -Will hold all blood pressure medications -will give IV fluids -will continue to closely monitor blood pressure 05/04 Low blood pressure noted in the morning. Patient seems a little bit drowsy, likely secondary to pain medications. She is not toxic appearing. Low BP likely secondary to tizanidine use. Continue IV fluid, continue monitoring BP, hold home blood pressure medicine for now. 05/05 BP is still very labile. Low BP noted once pt takes Tizanidine. Continue monitoring. (4) Hypertension Current Visit: No Status: Acute Assessment and Plan: Home BP meds were on hold due to low blood pressure. We will resume once blood pressure normalized. (5) Obesity (BMI 30.0-34.9) Current Visit: No Status: Acute Assessment and Plan: Need lifestyle changes. (6) DVT prophylaxis Current Visit: No Status: Acute Assessment and Plan: Heparin SQ. - Time Spent with Patient Total time spent is greater than 50% in coordination of care (as documented) at patient's floor/unit and/or counseling patient: Greater than 35 minutes Plan of Care Discussed with: patient Internal Medicine: Result - Labs CBC & Chem 7: 05/05/19 00:52 05/05/19 00:52 Labs: Short CBC 05/05/19 Range/Units 00:52 WBC 10.4 (4.3-11.1) K/mcL Hgb 13.4 D (11.5-15.4) g/dL Hct 40.6 (35.3-44.9) % Plt Count 308 (140-400) K/mcL Neutrophils # 6.5 (1.6-8.9) K/mcL BMP 05/05/19 00:52 Sodium 144 Potassium 3.7 Chloride 108 H Carbon Dioxide 24 BUN 6 Creatinine 0.51 L Glucose 122 H Calcium 9.4 Consult Discharge Plan - Plan Referrals: Artur Woody MD [Primary Care Provider] - (2) Infected cat bite Qualifiers: Encounter type: initial encounter Qualified Code(s): W55.01XA - Bitten by cat, initial encounter (3) Hypotension Qualifiers: Hypotension type: hypotension due to drug Qualified Code(s): I95.2 - Hypotension due to drugs (4) Hypertension Qualifiers: Hypertension type: essential hypertension Qualified Code(s): I10 - Essential (primary) hypertension
[2019-05-05] MEDS ORDERED: tiZANidine 4 MG TABLET PO PRN (12:26)
[2019-05-05] MEDS ORDERED: NON-FORMULARY MEDICATION 1 EACH EACH (Duloxetine Hcl [Cymbalta] 60 MG) PO SCH (12:30)
[2019-05-05] MEDS: Metoprolol XL (24 HR) Succ 50 MG TAB.ER.24H PO SCH (13:03)
[2019-05-05] MEDS: Loratadine 10 MG TABLET PO SCH (13:03)
[2019-05-05] MEDS: *HR* Heparin 5,000 UNIT/ML VIAL SQ SCH ×2 (15:50→21:16)
[2019-05-05] MEDS: ARIPiprazole 2 MG TABLET PO SCH (21:28)
[2019-05-06 01:28] LABS: Basophils % 0.6 %; Eosinophils # 0.2 K/mcL (0.0-0.6); Immature Granulocytes % 0.2 % (0-4); Lymphocytes # 2.3 K/mcL (0.6-4.6); Lymphocytes % 37.3 %; Mean Corpuscular HGB Conc 32.5 g/dL (31.6-35.5); Mean Corpuscular Hemoglobin 28.3 pg (28.0-33.3); Mean Platelet Volume 10.5 fL (9.4-12.4); Monocytes # 0.5 K/mcL (0.0-1.3); Monocytes % 7.2 %; Neutrophils # 3.2 K/mcL (1.6-8.9); Platelet Count 284 K/mcL (140-400); Red Blood Count 4.14 M/mcL (3.82-4.97); Red Cell Distribution Width 11.9 % (11.5-14.5); Segmented Neutrophils % 51.7 %; White Blood Count 6.2 K/mcL (4.3-11.1)
[2019-05-06 01:50] LABS: BUN/Creatinine Ratio 19 (6-26); Blood Urea Nitrogen 10 mg/dL (6-20); Calcium 8.8 mg/dL (8.6-10.3); Carbon Dioxide 24 mEq/L (23-29); Chloride 108 mEq/L (98-107); Glucose 134 mg/dL (70-105); Osmolality,Calculated 295 (280-300); Potassium 3.9 mEq/L (3.5-5.1); Sodium 142 mEq/L (136-145); eGFR For African Americans > 60 (> 60); eGFR For Non-African Americans > 60 (> 60)
[2019-05-06 02:31] LABS: Hemoglobin 11.7 g/dL (11.5-15.4); Platelet Estimate Normal (Normal)
[2019-05-06] MEDS: *HR* Heparin 5,000 UNIT/ML VIAL SQ SCH (05:17)
[2019-05-06] MEDS: *HR* OxyCODONE/APAP 7.5/325 TABLET PO PRN ×2 (05:28→11:01)
[2019-05-06] MEDS: Ampicillin/Sulbactam 3,000 MG in 0.9 % Sodium Chloride Mini Bag 100 ML IVPB SCH (05:29)
[2019-05-06 06:47] VITALS: BP 107/75
--- NOTE | 2019-05-06 08:28 | Discharge Summary ---
- NOTES TO OUTPATIENT PROVIDER Notes to Outpatient Provider: f/u with PCP within a week. Orders not resulted at time of discharge: Pending orders 05/03/19 22:21 Culture,Blood [] Stat Date of Encounter: 05/06/19 Time of Encounter: 08:24 - Discharge Diagnosis (1) Cellulitis of hand Priority: Primary Status: Acute (2) Infected cat bite Priority: Primary Status: Acute Qualifiers: Encounter type: initial encounter Qualified Code(s): W55.01XA - Bitten by cat, initial encounter (3) Hypotension Priority: Primary Status: Resolved Qualifiers: Hypotension type: hypotension due to drug Qualified Code(s): I95.2 - Hypotension due to drugs (4) Hypertension Priority: Secondary Status: Acute Qualifiers: Hypertension type: essential hypertension Qualified Code(s): I10 - Essential (primary) hypertension (5) Obesity (BMI 30.0-34.9) Priority: Secondary Status: Chronic (6) DVT prophylaxis Priority: Primary Status: Acute Hospital course: Ms. Matthews is a 38 year old female with past medical history of hypertension, hyperlipidemia, fibromyalgia, bariatric surgery who presented to [facility] complaining of a cat bite. Patient reported that yesterday evening around midnight she was giving her cat a bath when it bit her on her right hand. The following day she noticed her right hand start swelling and becoming more painful. Right-hand became more erythematous going to perform. She had pain with moving her fingers and her wrist. Additionally, she started noticing fevers and nausea so she decided to get the ED to be evaluated. She denied chills, chest pain, shortness of breath, abdominal pain, diarrhea. She reports her cat is up-to-date on that shots including rabies vaccination. In the ED initial vitals were temperature 100.1F, HR 105, BP 171/127. CBC, BMP, lactic acid were all unremarkable. Right hand CT showing soft tissue swelling and subcutaneous edema. No abscess or evidence of osteomyelitis. In the ED the patient was given 2L IVF, tetanus shot, ciprofloxacin, clindamycin, fentanyl, Dilaudid, Ativan. Blood cultures were taken. She was admitted. IV Unasyn was started. Right-hand cellulitis improved after 2 days of treatment. On the discharge today, patient afebrile, WBC normal, blood culture has no growth, and antibiotics switched to oral Augmentin. Patient is discharged home, 10 days prescription for oral Augmentin provided. She will follow-up with PCP within a week. Discharge discussed with: patient Time spent discussing smoking cessation with patient: more than 10 minutes - Time Spent with Patient Total time spent providing and/or coordinating discharge services: Time spent: Greater than 30 minutes - Discharge Medications Prescriptions: New Amoxicillin/Clavulanate [Augmentin] 875 mg PO BIDWM #20 tablet Continued Duloxetine HCl [Cymbalta] 60 mg PO DAILY Multivitamin [One Daily Multivitamin] 1 tab PO DAILY Atorvastatin [Lipitor] 40 mg PO HS tablet Calcium Citrate 1,200 mg PO DAILY Gabapentin [Neurontin] 300 - 600 mg PO TID Lisinopril [Zestril] 10 mg PO BID Loratadine [Allergy Relief] 10 mg PO DAILY Tizanidine HCl 4 - 12 mg PO TID PRN PRN Reason: Muscle Spasm ARIPiprazole [Abilify] 2 mg PO HS Metoprolol XL (24 HR) Succ [Toprol Xl] 50 mg PO DAILY Prazosin [Minipress] 1 mg PO BID OxyCODONE/APAP 7.5/325 [Percocet 7.5/325 MG] 1 tab PO TID PRN 2 Days #6 tab PRN Reason: Pain Home Medications: Duloxetine HCl [Cymbalta] 60 mg PO DAILY 03/19/18 [History] Multivitamin [One Daily Multivitamin] 1 tab PO DAILY 03/19/18 [History] Atorvastatin [Lipitor] 40 mg PO HS tablet 03/22/18 [Rx] Calcium Citrate 1,200 mg PO DAILY 03/22/19 [History] Gabapentin [Neurontin] 300 - 600 mg PO TID 03/22/19 [History] Lisinopril [Zestril] 10 mg PO BID 03/22/19 [History] Loratadine [Allergy Relief] 10 mg PO DAILY 03/22/19 [History] Tizanidine HCl 4 - 12 mg PO TID PRN 04/03/19 [History] ARIPiprazole [Abilify] 2 mg PO HS 05/04/19 [History] Metoprolol XL (24 HR) Succ [Toprol Xl] 50 mg PO DAILY 05/04/19 [History] Prazosin [Minipress] 1 mg PO BID 05/04/19 [History] Amoxicillin/Clavulanate [Augmentin] 875 mg PO BIDWM #20 tablet 05/06/19 [Rx] OxyCODONE/APAP 7.5/325 [Percocet 7.5/325 MG] 1 tab PO TID PRN 2 Days #6 tab 05/06/19 [Rx] Allergies/Adverse Reactions: Allergy/AdvReac Type Severity Reaction Status Date / Time aspirin [ASA] AdvReac See Verified 03/22/19 22:47 Comments NSAIDS (Non-Steroidal AdvReac See Verified 03/22/19 22:47 Anti-Inflamma Comments Tape Allergy Hives Uncoded 03/22/19 22:47 Date of admission: 05/04/19 01:53 Primary care physician: Artur Woody MD Anticipated date of discharge: 05/06/19 - Constitutional Vitals: Temp Pulse Resp BP Pulse Ox 98.3 F 99 17 107/75 97 05/06/19 06:38 05/06/19 06:38 05/06/19 06:38 05/06/19 06:38 05/06/19 06:38 General appearance: Present: A&O X 3 Exam: Gen.: Vitals noted. No acute distress. AAOx3 HEENT: oropharynx clear, Normocephalic, atraumatic Cardiac: RRR, no murmur, +S1/S2 Pulmonary: CTA bilaterally, no wheezes, rales or rhonchi, equal chest expansion Abdomen: soft, nontender, Bowel sounds noted, no guarding MSK: right hand swelling and erythema diffusely with puncture ashish on dorsal and ventral surface between the thumb and first finger. Erythema extends up 1/[address] up forearm. No crepitation. Extremities: diffuse swelling and redness noted on the dorsal of right hand extended to the right wrist. tender on passive range of motion. Neuro: A&Ox3, moves all extremities, no focal deficits Psych: Appropriate mood and behavior - Patient Status Disposition: Home, Self-Care Condition: Fair Functional capacity at discharge: independent ambulation Overall status at discharge: patient is progressing back to baseline - Discharge Instructions Follow Up With: Artur Woody MD [Primary Care Provider] - - Diet and Activity Activity: increase activity as tolerated Diet: advance to your usual diet
[2019-05-06] MEDS: Metoprolol XL (24 HR) Succ 50 MG TAB.ER.24H PO SCH (11:01)
[2019-05-06] MEDS: Multivit/Ca/Min/Fe/FA 1 TAB TABLET PO SCH (11:02)
[2019-05-06] MEDS: Loratadine 10 MG TABLET PO SCH (11:02)
== END 2019-05-06 11:51 | disposition home or self-care (01) ==
LOC: 3BNU 21:46 → EMEROOARM 21:46 → 3BNU 05-04 01:56
PROVIDERS: ADMIT Internal Medicine; ATTEND Internal Medicine

== ENCOUNTER 2019-09-03 06:26 | Observation (INO) ==
[2019-09-03 06:55] LABS: Bilirubin,Urine Negative (Negative); Blood,Urine Negative (Negative); Clarity,Urine Clear (Clear); Color,Urine Yellow (Yellow); Glucose,Urine (UA) Normal (Normal); Ketones,Urine Trace mg/dL (Negative); Leukocyte Esterase,Urine Moderate (Negative); Nitrite,Urine Negative (Negative); Protein,Urine 100 mg/dL (Neg-Trace); Specific Gravity,Urine 1.021 (1.010-1.025)
[2019-09-03 06:56] LABS: Bacteria,Urine None Seen per hpf (None-Few); Hyaline Casts,Urine None Seen per lpf (None-Few); Squamous Epithelial Cell,Urine Many per lpf (None-Few)
[2019-09-03] MEDS ORDERED: *HR* FentaNYL (PF) 100 MCG/2 ML VIAL IVP ONE (06:57)
[2019-09-03] MEDS ORDERED: Isovue-370 500 ML BOTTLE IVP ONE (06:57)
[2019-09-03] MEDS ORDERED: Ondansetron 4 MG/2 ML VIAL IVP ONE ×2 (06:57→09:29)
[2019-09-03] MEDS: 0.9 % Sodium Chloride 1,000 ML IVC SCH ×2 (07:22→08:45)
[2019-09-03 07:57] LABS: Basophils % 0.4 %; Eosinophils # 0.1 K/mcL (0.0-0.6); Eosinophils % 0.8 %; Hematocrit 42.5 % (35.3-44.9); Hemoglobin 14.8 g/dL (11.5-15.4); Immature Granulocytes % 0.2 % (0-4); Lymphocytes # 1.3 K/mcL (0.6-4.6); Lymphocytes % 14.2 %; Mean Corpuscular HGB Conc 34.8 g/dL (31.6-35.5); Mean Corpuscular Hemoglobin 28.7 pg (28.0-33.3); Mean Corpuscular Volume 82.5 fL (83.0-100.0); Mean Platelet Volume 9.9 fL (9.4-12.4); Monocytes # 0.4 K/mcL (0.0-1.3); Monocytes % 4.7 %; Neutrophils # 7.4 K/mcL (1.6-8.9); Platelet Count 372 K/mcL (140-400); Red Blood Count 5.15 M/mcL (3.82-4.97); Red Cell Distribution Width 12.8 % (11.5-14.5); Segmented Neutrophils % 79.7 %; White Blood Count 9.3 K/mcL (4.3-11.1)
[2019-09-03 08:00] LABS: INR 1.1; Prothrombin Time 12.2 Seconds (9.4-12.1)
[2019-09-03 08:03] LABS: Activated Partial Thrombo Time 36.7 Seconds (26.0-36.0)
[2019-09-03 08:19] LABS: Alanine Aminotransferase 31 Units/L (7-52); Albumin 5.2 g/dL (3.5-5.7); Albumin/Globulin Ratio 1.9 (1.1-2.2); Alkaline Phosphatase 121 Units/L (34-104); Amylase 49 Units/L (29-103); Aspartate Amino Transferase 19 Units/L (13-39); BUN/Creatinine Ratio 17 (6-26); Bilirubin,Direct 0.2 mg/dL (0.0-0.2); Bilirubin,Indirect 0.6 mg/dL (0.0-1.0); Bilirubin,Total 0.8 mg/dL (0.3-1.0); Blood Urea Nitrogen 13 mg/dL (6-20); Calcium 10.5 mg/dL (8.6-10.3); Carbon Dioxide 23 mEq/L (23-29); Chloride 104 mEq/L (98-107); Globulin 2.8 g/dL (2.4-3.5); Glucose 166 mg/dL (70-105); Lipase 9 Units/L (11-82); Magnesium 1.8 mg/dL (1.6-2.6); Osmolality,Calculated 306 (280-300); Potassium 3.6 mEq/L (3.5-5.1); Sodium 146 mEq/L (136-145); Troponin I < 0.03 ng/mL (< 0.04); eGFR For African Americans > 60 (> 60); eGFR For Non-African Americans > 60 (> 60)
[2019-09-03] MEDS ORDERED: *HR* HYDROmorphone (PF) 1 MG/ML SYRINGE IVP ONE ×2 (08:44→11:03)
[2019-09-03] MEDS ORDERED: Isovue-370 500 ML BOTTLE PO ONE (10:35)
[2019-09-03] MEDS ORDERED: Promethazine 25 MG in 0.9 % Sodium Chloride 50 ML IVPB ONE (11:03)
[2019-09-03] MEDS ORDERED: GI Cocktail 40 ML EACH PO ONE (11:12)
[2019-09-03] MEDS ORDERED: *HR* Metoprolol 5 MG/5 ML VIAL IVP ONE (11:59)
[2019-09-03] MEDS ORDERED: Pantoprazole 40 MG VIAL IVP ONE (12:02)
[2019-09-03] MEDS ORDERED: niCARdipine 20 MG/200 ML MLS IVC ONE (12:20)
[2019-09-03] MEDS ORDERED: 0.9 % Sodium Chloride 1,000 ML IVC ONE (13:03)
[2019-09-03] MEDS ORDERED: Naloxone 0.4 MG/ML INJ IVP PRN (13:36)
[2019-09-03] MEDS ORDERED: 0.9 % Sodium Chloride w KCl 20 MEQ/1,000 ML MLS IVC SCH (13:45)
[2019-09-03] MEDS ORDERED: *HR* FentaNYL (PF) 100 MCG/2 ML VIAL IVP PRN (13:59)
[2019-09-03] MEDS ORDERED: *HR* Metoprolol 5 MG/5 ML VIAL IVP PRN (15:08)
[2019-09-03] MEDS: niCARdipine 20 MG in 0.9 % Sodium Chloride 192 ML IVC SCH ×2 (15:14→17:22)
[2019-09-03] MEDS: *HR* OxyCODONE/APAP 7.5/325 TABLET PO PRN (16:32)
[2019-09-03] MEDS: Ondansetron 4 MG/2 ML VIAL IVP PRN (17:22)
[2019-09-03] MEDS: ARIPiprazole 5 MG TABLET PO SCH (19:56)
[2019-09-03] MEDS: *HR* Promethazine 25 MG/ML VIAL IVP PRN (19:56)
[2019-09-03] MEDS: 0.45 % Sodium Chloride w/KCl 20 MEQ/1,000 ML MLS IVC SCH ×2 (21:48→22:50)
[2019-09-04] MEDS: *HR* OxyCODONE/APAP 7.5/325 TABLET PO PRN ×3 (00:39→17:53)
[2019-09-04] MEDS: Ondansetron 4 MG/2 ML VIAL IVP PRN ×2 (00:39→12:10)
[2019-09-04 04:44] LABS: Basophils # 0.1 K/mcL (0.0-0.2); Basophils % 0.7 %; Eosinophils # 0.1 K/mcL (0.0-0.6); Eosinophils % 1.3 %; Hematocrit 38.5 % (35.3-44.9); Immature Granulocytes % 1.3 % (0-4); Lymphocytes % 34.4 %; Mean Corpuscular Hemoglobin 28.3 pg (28.0-33.3); Mean Corpuscular Volume 83.2 fL (83.0-100.0); Mean Platelet Volume 9.9 fL (9.4-12.4); Monocytes # 0.9 K/mcL (0.0-1.3); Monocytes % 10.7 %; Neutrophils # 4.3 K/mcL (1.6-8.9); Nucleated Red Blood Cells 0.8 /100 WBC (0); Platelet Count 360 K/mcL (140-400); Red Blood Count 4.63 M/mcL (3.82-4.97); Red Cell Distribution Width 13.2 % (11.5-14.5); Segmented Neutrophils % 51.6 %; White Blood Count 8.3 K/mcL (4.3-11.1)
[2019-09-04 04:49] LABS: Lymphocytes # 2.9 K/mcL (0.6-4.6)
[2019-09-04 04:50] LABS: Hemoglobin 13.1 g/dL (11.5-15.4)
[2019-09-04 05:06] LABS: Platelet Estimate Normal (Normal); Reactive Lymphocytes Present (Not Present)
[2019-09-04] MEDS: *HR* Heparin 5,000 UNIT/ML VIAL SQ SCH ×3 (05:33→21:40)
[2019-09-04 05:55] LABS: BUN/Creatinine Ratio 13 (6-26); Blood Urea Nitrogen 12 mg/dL (6-20); Calcium 9.1 mg/dL (8.6-10.3); Carbon Dioxide 24 mEq/L (23-29); Chloride 111 mEq/L (98-107); Glucose 123 mg/dL (70-105); Magnesium 1.9 mg/dL (1.6-2.6); Osmolality,Calculated 297 (280-300); Phosphorous 3.7 mg/dL (2.7-4.5); Sodium 143 mEq/L (136-145); eGFR For African Americans > 60 (> 60); eGFR For Non-African Americans > 60 (> 60)
[2019-09-04] MEDS ORDERED: 0.9 % Sodium Chloride 250 ML IV ONE (13:24)
[2019-09-04] MEDS ORDERED: 0.9 % Sodium Chloride 250 ML ONE (13:25)
[2019-09-04] MEDS: niCARdipine 20 MG in 0.9 % Sodium Chloride 192 ML IVC SCH (13:39)
[2019-09-04] MEDS: carvediloL 6.25 MG TABLET PO SCH (16:25)
[2019-09-04] MEDS: *HR* Promethazine 25 MG/ML VIAL IVP PRN (18:34)
[2019-09-04 18:37] LABS: Bilirubin,Urine Negative (Negative); Blood,Urine Negative (Negative); Clarity,Urine Cloudy (Clear); Color,Urine Yellow (Yellow); Glucose,Urine (UA) Normal (Normal); Ketones,Urine Negative (Negative); Leukocyte Esterase,Urine Moderate (Negative); Nitrite,Urine Negative (Negative); Protein,Urine Negative (Neg-Trace); Specific Gravity,Urine 1.014 (1.010-1.025); Urobilinogen,Urine Normal (Normal)
[2019-09-04 18:42] LABS: Bacteria,Urine None Seen per hpf (None-Few); Hyaline Casts,Urine None Seen per lpf (None-Few); RBC,Urine 0-3 per hpf (0-3); Squamous Epithelial Cell,Urine Moderate per lpf (None-Few); WBC,Urine 15-30 per hpf (0-3)
[2019-09-04] MEDS: ARIPiprazole 5 MG TABLET PO SCH (21:40)
[2019-09-05] MEDS: *HR* OxyCODONE/APAP 7.5/325 TABLET PO PRN ×3 (00:15→11:01)
[2019-09-05] MEDS: Ondansetron 4 MG/2 ML VIAL IVP PRN ×2 (00:19→07:55)
[2019-09-05] MEDS: *HR* Heparin 5,000 UNIT/ML VIAL SQ SCH (04:34)
[2019-09-05 04:45] LABS: Hematocrit 40.1 % (35.3-44.9); Hemoglobin 13.1 g/dL (11.5-15.4); Mean Corpuscular HGB Conc 32.7 g/dL (31.6-35.5); Mean Corpuscular Hemoglobin 27.8 pg (28.0-33.3); Mean Platelet Volume 9.4 fL (9.4-12.4); Platelet Count 342 K/mcL (140-400); Red Blood Count 4.72 M/mcL (3.82-4.97); Red Cell Distribution Width 12.9 % (11.5-14.5); White Blood Count 5.6 K/mcL (4.3-11.1)
[2019-09-05 05:00] LABS: BUN/Creatinine Ratio 17 (6-26); Blood Urea Nitrogen 12 mg/dL (6-20); Calcium 9.5 mg/dL (8.6-10.3); Carbon Dioxide 25 mEq/L (23-29); Chloride 108 mEq/L (98-107); Glucose 103 mg/dL (70-105); Osmolality,Calculated 296 (280-300); Sodium 143 mEq/L (136-145); eGFR For African Americans > 60 (> 60); eGFR For Non-African Americans > 60 (> 60)
[2019-09-05] MEDS: carvediloL 6.25 MG TABLET PO SCH (07:37)
[2019-09-05 07:47] VITALS: BP 127/94
== END 2019-09-05 11:04 | disposition home or self-care (01) ==
LOC: 2NNU 06:26 → EMEROOARM 06:26 → SUATTDRO 13:51 → 2NNU 14:30
PROVIDERS: ADMIT Student in an Organized Health Care Education/Training Program; ATTEND Family Medicine

== ENCOUNTER 2020-09-30 20:06 | Observation (INO) ==
[2020-09-30] MEDS ORDERED: Orphenadrine 60 MG/2 ML VIAL IVP ONE (20:35)
[2020-09-30] MEDS ORDERED: *HR* FentaNYL (PF) 100 MCG/2 ML VIAL IVP ONE (20:35)
[2020-09-30] MEDS ORDERED: Dexamethasone 4 MG/ML VIAL IVP ONE (20:35)
[2020-09-30] MEDS ORDERED: Morphine Sulfate 2 MG/ML SYRINGE IVP ONE (20:49)
[2020-09-30] MEDS ORDERED: *HR* HYDROmorphone (PF) 1 MG/ML SYRINGE IVP ONE (22:08)
[2020-10-01] MEDS ORDERED: Ondansetron ODT 4 MG TAB.RAPDIS SL PRN (00:40)
[2020-10-01] MEDS ORDERED: Naloxone 0.4 MG/ML INJ IVP PRN (00:40)
[2020-10-01] MEDS ORDERED: Acetaminophen 325 MG TABLET PO PRN (00:40)
[2020-10-01] MEDS: *HR* HYDROmorphone (PF) 1 MG/ML SYRINGE IVP PRN ×2 (00:59→04:59)
[2020-10-01 01:10] LABS: Amphetamine Screen,Urine Negative ng/mL (Cutoff=1000); Barbiturate Screen,Urine Negative ng/mL (Cutoff=200); Benzodiazepines Screen,Urine Negative ng/mL (Cutoff=200); Cannabinoid Screen,Urine Negative ng/mL (Cutoff = 50); Cocaine Screen,Urine Negative ng/mL (Cutoff= 300); Opiate Screen,Urine Positive ng/mL (Cutoff=300); Phencyclidine Screen,Urine Negative ng/mL (Cutoff=25)
[2020-10-01] MEDS ORDERED: *HR* OxyCODONE/APAP 7.5/325 TABLET PO PRN (01:26)
[2020-10-01] MEDS ORDERED: tiZANidine 4 MG TABLET PO PRN (01:26)
[2020-10-01 01:54] LABS: Basophils % 0.6 %; Eosinophils % 0.3 %; Hematocrit 40.5 % (35.3-44.9); Hemoglobin 13.4 g/dL (11.5-15.4); Immature Granulocytes % 0.3 % (0-4); Lymphocytes # 1.1 K/mcL (0.6-4.6); Mean Corpuscular HGB Conc 33.1 g/dL (31.6-35.5); Mean Corpuscular Hemoglobin 27.9 pg (28.0-33.3); Mean Corpuscular Volume 84.4 fL (83.0-100.0); Mean Platelet Volume 9.6 fL (9.4-12.4); Monocytes # 0.1 K/mcL (0.0-1.3); Monocytes % 1.1 %; Neutrophils # 5.9 K/mcL (1.6-8.9); Platelet Count 466 K/mcL (140-400); Red Cell Distribution Width 12.8 % (11.5-14.5); Segmented Neutrophils % 82.7 %; White Blood Count 7.2 K/mcL (4.3-11.1)
[2020-10-01] MEDS ORDERED: Melatonin 3 MG TABLET PO SCH (02:00)
[2020-10-01] MEDS: Gabapentin 300 MG CAPSULE PO SCH ×3 (02:03→14:41)
[2020-10-01 02:13] LABS: BUN/Creatinine Ratio 16 (6-26); Blood Urea Nitrogen 10 mg/dL (6-20); Calcium 9.8 mg/dL (8.6-10.3); Carbon Dioxide 21 mEq/L (23-29); Chloride 105 mEq/L (98-107); Glucose 159 mg/dL (70-105); Magnesium 1.6 mg/dL (1.6-2.6); Osmolality,Calculated 290 (280-300); Potassium 4.3 mEq/L (3.5-5.1); Sodium 139 mEq/L (136-145); eGFR For African Americans > 60 (> 60); eGFR For Non-African Americans > 60 (> 60)
[2020-10-01] MEDS ORDERED: carvediloL 6.25 MG TABLET PO SCH (02:15)
[2020-10-01] MEDS ORDERED: *HR* Enoxaparin 40 MG/0.4 ML SYRINGE SQ SCH (06:00)
[2020-10-01] MEDS ORDERED: Loratadine 10 MG TABLET PO SCH (09:00)
[2020-10-01] MEDS ORDERED: Orphenadrine 100 MG TABLET.ER PO SCH (09:00)
[2020-10-01] MEDS ORDERED: Pantoprazole 40 MG VIAL IVP SCH (09:15)
[2020-10-01] MEDS: Ketorolac 15 MG/ML VIAL IVP SCH ×2 (09:29→13:05)
[2020-10-01] MEDS ORDERED: lisinopriL 10 MG TABLET PO SCH (10:30)
[2020-10-01] MEDS: *HR* OxyCODONE/APAP 10/325 TABLET PO PRN ×2 (10:41→14:41)
[2020-10-01] MEDS ORDERED: carvediloL 6.25 MG TABLET PO ONE (11:42)
[2020-10-01 15:08] VITALS: BP 181/120
[2020-10-01] MEDS ORDERED: ARIPiprazole 5 MG TABLET PO SCH (21:00)
== END 2020-10-01 17:30 | disposition home or self-care (01) ==
LOC: 3BNU 20:06 → EMEROOARM 20:06 → SUATTDRO 23:59 → 3BNU 10-01 00:47
PROVIDERS: ADMIT Student in an Organized Health Care Education/Training Program; ATTEND Internal Medicine